=== PATIENT | female | born 1970 | race American Indian/Alaskan Native ===

== ENCOUNTER 2021-07-30 13:10 | Inpatient (IN) | payer SELFPAY ==
[2021-07-30] MEDS ORDERED: HEPARIN 1,000 UNIT/1 ML VIAL IV ONE (13:23)
[2021-07-30] MEDS ORDERED: SODIUM CHLORIDE 0.9% 1000 ML 1,000 ML IV ONE (13:23)
--- NOTE | 2021-07-30 13:25 | Emergency Department Report ---
ED General Adult HPI - General Stated complaint: CHEST PAIN Time Seen by Provider: 07/30/21 13:12 - History of Present Illness Initial comments: Patient came in with EMS as a code STEMI. She had called them due to generalized weakness. Patient did not report focal weakness. She states that she felt weak all day. She is diabetic and hypertensive. She states that she does not have any chest pain. She has had diarrhea previously. Patient states that she does feel slightly short of breath. This is not specifically exertional. She has no chest pain. She has no abdominal pain. She denies back pain. She just does not feel well. EMS had transported the patient as a code STEMI based on abnormal EKG. EKG was transmitted here and we did call code STEMI based on the prehospital EKG. Dr. Ko had been notified prior to patient arrival as have the [facility]. Severity scale (0 -10): 0 ED Review of Systems ROS: Stated complaint: CHEST PAIN Other details as noted in HPI Comment: All other systems reviewed and negative Constitutional: denies: fever Eyes: denies: vision change ENT: denies: throat pain Respiratory: denies: cough Cardiovascular: denies: chest pain Endocrine: denies: unexplained weight loss Gastrointestinal: as per HPI Genitourinary: denies: dysuria Musculoskeletal: denies: back pain Skin: denies: rash Neurological: as per HPI, weakness Hematological/Lymphatic: denies: easy bruising ED Past Medical Hx - Past Medical History Hx Hypertension: Yes Hx Diabetes: Yes - Family History Family history: diabetes, hypertension - Social History Smoking Status: Former Smoker ED Physical Exam - General Limitations: No Limitations, Other (Pulse ox noted and normal) General appearance: alert, in no apparent distress, other (Frail) - Head Head exam: Present: atraumatic, normocephalic - Eye Eye exam: Present: normal appearance, PERRL, EOMI - ENT ENT exam: Present: mucous membranes dry, normal external ear exam - Neck Neck exam: Present: normal inspection. Absent: tenderness, meningismus - Respiratory Respiratory exam: Present: normal lung sounds bilaterally. Absent: respiratory distress - Cardiovascular Cardiovascular Exam: Present: normal rhythm, tachycardia - GI/Abdominal GI/Abdominal exam: Present: soft. Absent: distended, tenderness - Extremities Exam Extremities exam: Absent: calf tenderness - Back Exam Back exam: Absent: CVA tenderness (R), CVA tenderness (L) - Neurological Exam Neurological exam: Present: alert, oriented X3, CN II-XII intact. Absent: motor sensory deficit - Psychiatric Psychiatric exam: Present: normal affect, normal mood - Skin Skin exam: Present: warm, dry ED Course Vital Signs 07/30/21 13:22 Pulse Rate 125 H Respiratory 16 Rate Blood Pressure 140/105 [Left] O2 Sat by Pulse 97 Oximetry - Reevaluation(s) Reevaluation #1: 07/30/21 13:25 EMS have been met upon arrival. Code STEMI was activated prior to EMS arrival based on field EKG. Case was discussed with Dr. Ko on-call for interventional cardiology who reviewed our EKG. Decision was made to proceed to the [facility]. ED Medical Decision Making - Lab Data Rhythm strip: Sinus tachycardia without ectopy. Monitor observe 10 seconds. - EKG Data -: EKG Interpreted by Me - EKG Data When compared to previous EKG there are: previous EKG unavailable 07/30/21 13:34 1313-EKG shows sinus tachycardia at 117. Patient does have left ventricular hypertrophy. QRS is normal at 101. QT corrected is normal at 4-54. Patient does have ST elevation of the greater than 5 mm and at least one lead. There is actually ST elevation in V1 through V3 with ST depression in 1 and aVL. There is a suggestion of ST elevation or J-point elevation in 3 and aVF. This is similar to what the EKG transmitted by EMS was. There is no old EKG for comparison. - Medical Decision Making Patient presented with generalized weakness. She is diabetic and hypertensive. She has an EKG that has ST elevation concerning for AMI. This has been provided to the network controller and discussed with the network controller. The plan is to take the patient emergently to the [facility]. It is conceivable that this does not represent a [place] and cardiology believes that this could represent Brugada syndrome. Electrolytes have been ordered and are currently pending. Patient has no abdominal tenderness on exam. She does not appear to be septic or toxic. Critical Care Time: No Critical care attestation.: If time is entered above; I have spent that time in minutes in the direct care of this critically ill patient, excluding procedure time. ED Disposition Clinical Impression: Generalized weakness, Abnormal EKG Disposition: ADMITTED INPATIENT Is pt being admited?: Yes Condition: Stable
[2021-07-30] MEDS ORDERED: MIDAZOLAM 2 MG/2 ML INJ ONE (13:39)
[2021-07-30] MEDS ORDERED: HEPARIN/NS 5000 UNIT/500ML 1,000 ML IR ONE (13:39)
[2021-07-30] MEDS ORDERED: LIDOCAINE PF 100 MG/5 ML (CARDIAC SYRINGE) IV ONE (13:39)
[2021-07-30] MEDS ORDERED: EPINEPHrine 1 MG/10 ML SYRINGE ONE (13:39)
[2021-07-30] MEDS ORDERED: ATROPINE 0.1% (1 MG/10 ML) CARDIAC SYRINGE ONE (13:39)
[2021-07-30 13:40] LABS: Hematocrit 27.1 % (30.3-42.9); Hemoglobin 9.1 gm/dl (10.1-14.3); Mean Corpuscular HGB Conc 34 % (30-34); Mean Corpuscular Volume 70 fl (79-97); Platelet Count 524 K/mm3 (140-440); Red Blood Count 3.85 M/mm3 (3.65-5.03); Red Cell Distribution Width 19.1 % (13.2-15.2)
[2021-07-30] MEDS ORDERED: LIDOCAINE (2%) 20 MG/1 ML VIAL 20 ML MDV INFILTRATI ONE (13:40)
[2021-07-30] MEDS ORDERED: fentaNYL 100 MCG/2 ML INJ ONE (13:40)
[2021-07-30] MEDS ORDERED: PHENYLEPHRINE/NS 1,000 MCG/10 ML SYRINGE (OR USE) IV ONE (13:40)
[2021-07-30] MEDS ORDERED: NITROGLYCERIN SYRINGE 3 ML ONE (13:40)
[2021-07-30 13:54] LABS: INR 0.97 (0.87-1.13); Partial Thromboplastin Time 24.9 Sec. (24.2-36.6)
[2021-07-30] MEDS: HEPARIN 10,000 UNITS/10 ML VIAL ONE ×2 (13:57→14:07)
[2021-07-30] MEDS: VERAPAMIL 5 MG/2 ML INJ ONE ×2 (13:57→14:07)
[2021-07-30 13:59] LABS: Creatine Kinase MB 3.7 ng/mL (0.0-4.0)
[2021-07-30 14:00] LABS: BUN/Creatinine Ratio 17; Blood Urea Nitrogen 27 mg/dL (7-17); Hemolysis Index 25
[2021-07-30 14:08] LABS: Calcium > 13.0 mg/dL (8.4-10.2)
[2021-07-30] MEDS ORDERED: MORPHINE 2 MG/1 ML INJ IV PRN (14:16)
[2021-07-30] MEDS ORDERED: ONDANSETRON 4 MG/2 ML INJ IV PRN (14:16)
[2021-07-30] MEDS ORDERED: METOCLOPRAMIDE 10 MG/2 ML INJ IV PRN (14:16)
[2021-07-30] MEDS ORDERED: ACETAMINOPHEN 325 MG TAB PO PRN (14:16)
[2021-07-30 14:23] LABS: Chol/HDL Ratio 3.89 %; HDL Cholesterol 49 mg/dL (40-59); LDL Cholesterol,Direct 98 mg/dL (50-130)
[2021-07-30] MEDS ORDERED: traMADol 50 MG TAB PO PRN (14:23)
[2021-07-30] MEDS ORDERED: SODIUM CHLORIDE 0.9% 1000 ML 1,000 ML IV SCH (14:30)
--- NOTE | 2021-07-30 14:30 | Consultation ---
History of Present Illness Consult date: 07/30/21 Requesting physician: TD REILLY Consult reason: other (Abnormal EKG) History of present illness: Patient is a 51-year-old with no prior cardiac history. She has a history of hypertension and diabetes mellitus. She presented to the emergency room via EMS when she complaining of significant fatigue and tiredness. Apparently has been having gradual onset of fatigue and tiredness. But this afternoon it became so intense that she called EMS S. EKG revealed markedly abnormal EKG with ST elevations and QT prolongations in anterior leads. However no reciprocal depression. In view of the multiple risk factors markedly abnormal EKG she was taken for an emergency left heart cath. Fortunately left heart cath was negative. Patient is being admitted to the general medicine team for further treatment of her extreme fatigue and tiredness. Patient does complain of diarrhea for the past few days. Lab work revealed elevated creatinine Past History Past Medical History: diabetes, hypertension Past Surgical History: No surgical history Social history: no significant social history Family history: no significant family history Medications and Allergies Allergies Allergy/AdvReac Type Severity Reaction Status Date / Time No Known Allergies Allergy Unverified 07/30/21 13:38 Active Meds: Active Medications Hydrocodone Bitart/Acetaminophen (Hydrocodone/Acetaminophen 5-325 Mg Tab) 1 each PO Q4H PRN PRN Reason: Pain, Moderate (4-6) Sodium Chloride (Nacl 0.9% 1000 Ml) 1,000 mls @ 150 mls/hr IV DIRECT JO-ANN Tramadol HCl (Tramadol 50 Mg Tab) 50 mg PO Q4H PRN PRN Reason: Pain, Mild (1-3) Review of Systems All systems: negative (As mentioned in the H&P) Physical Examination Vital Signs Pulse Resp BP Pulse Ox 125 H 16 140/105 97 07/30/21 13:12 07/30/21 13:12 07/30/21 13:12 07/30/21 13:12 General appearance: no acute distress HEENT: Positive: Normocephaly Neck: Positive: trachea midline Cardiac: Positive: Reg Rate and Rhythm Lungs: Positive: clear to auscultation Neuro: Positive: Grossly Intact Abdomen: Positive: Unremarkable Female genitourinary: deferred, normal Extremities: Present: normal Results 07/30/21 13:00 07/30/21 13:00 Cardiac Enzymes 07/30/21 Range/Units 13:00 CK-MB (CK-2) 3.7 (0.0-4.0) ng/mL Coagulation 07/30/21 Range/Units 13:00 PT 13.9 (12.2-14.9) Sec. INR 0.97 (0.87-1.13) APTT 24.9 (24.2-36.6) Sec. Lipids 07/30/21 Range/Units 13:00 Triglycerides 170 H (2-149) mg/dL Cholesterol 191 (50-199) mg/dL HDL Cholesterol 49 (40-59) mg/dL Cholesterol/HDL Ratio 3.89 % CBC 07/30/21 Range/Units 13:00 WBC 14.8 H (4.5-11.0) K/mm3 RBC 3.85 (3.65-5.03) M/mm3 Hgb 9.1 L (10.1-14.3) gm/dl Hct 27.1 L (30.3-42.9) % Plt Count 524 H (140-440) K/mm3 Comprehensive Metabolic Panel 07/30/21 Range/Units 13:00 Sodium 134 L (137-145) mmol/L Potassium 3.3 L (3.6-5.0) mmol/L Chloride 92.7 L (98-107) mmol/L Carbon Dioxide 29 (22-30) mmol/L BUN 27 H (7-17) mg/dL Creatinine 1.6 H (0.6-1.2) mg/dL Glucose 107 H (65-100) mg/dL Calcium > 13.0 H* (8.4-10.2) mg/dL EKG interpretations - Telemetry EKG Rhythm: Sinus Rhythm (Marked ST elevation in anterior leads with QT prolongation. No significant reciprocal depression noted.) Assessment and Plan Impression 1. Markedly abnormal EKG with tombstone ST elevations and QT prolongation. Fortunately left heart cath negative. Would likely need work-up for variance of Brugada syndrome 2. Extreme fatigue and weakness noncardiac 3. Renal failure likely acute 4. Hypokalemia 5. History of hypertension 6. History of diabetes mellitus 7. Diarrhea Plan 1. Routine post cardiac cath cardiac care 2. Aggressive IV hydration 3. Continue security monitor 4. 2D echocardiogram 5. Replace lites 6. Rest per primary team
[2021-07-30] MEDS: FAMOTIDINE 20 MG TAB PO SCH ×2 (16:44→21:16)
[2021-07-30] MEDS: HEPARIN 5,000 UNIT/1 ML VIAL SUB-Q SCH ×2 (16:44→21:16)
[2021-07-30 17:21] LABS: Creatine Kinase MB 3.3 ng/mL (0.0-4.0)
[2021-07-30] MEDS: oxyCODONE /ACETAMINOPHEN 5-325MG TAB PO PRN (18:48)
[2021-07-30 20:14] LABS: Creatine Kinase MB 4.1 ng/mL (0.0-4.0)
--- NOTE | 2021-07-30 20:24 | XRay Report ---
CHEST 1 VIEW INDICATION / CLINICAL INFORMATION: stemi. COMPARISON: None available. FINDINGS: SUPPORT DEVICES: None. HEART / MEDIASTINUM: No significant abnormality. LUNGS / PLEURA: No significant pulmonary or pleural abnormality. No pneumothorax. ADDITIONAL FINDINGS: No significant additional findings. IMPRESSION: 1. No acute findings. Signer Name: Edwardo Alcala MD Signed: 07/30/2021 8:20 PM Workstation Name: [id number]
[2021-07-31] MEDS: SODIUM CHLORIDE 0.9% 1000 ML 1,000 ML IV SCH ×2 (04:41→16:53)
--- NOTE | 2021-07-31 06:27 | History and Physical Report ---
History of Present Illness Date of examination: 07/31/21 Date of admission: 07/30/21 14:16 Chief complaint: Generalized weakness for 3 to 4 days History of present illness: Patient complains of generalized weakness for the last 2 to 3 days. No chest pain. EMS was called. EKG done by EMS was transmitted to the emergency room and code STEMI was called. It was a questionable STEMI. Because of a acute ST- T wave changes patient was taken to the [facility] for cardiac cath. Based on the prehospital EKG. She has a history of hypertension and diabetes mellitus. She presented to the emergency room via EMS when she complaining of significant fatigue and tiredness . Apparently has been having gradual onset of fatigue and tiredness. But this afternoon it became so intense that she called EMS S. EKG revealed markedly abnormal EKG with ST elevations and QT prolongations in anterior leads. However no reciprocal depression. In view of the multiple risk factors markedly abnormal EKG she was taken for an emergency left heart cath. Fortunately left heart cath was negative. Patient is being admitted to the general medicine team for further treatment of her extreme fatigue and tiredness. Patient does complain of diarrhea for the past few days. Lab work revealed elevated creatinine [facility] was informed and patient was taken to [facility] and had cardiac cath. Cardiac cath was normal and no stents were placed. Patient continued to feel weak and occasional chest pain. Hence admission for next 23 hours for IV fluids and observation. - Past Medical History --Hypertension: Yes --Diabetes: Yes - past surgical history -- N/A - Family History --Family history: diabetes, hypertension - Social History Smoking Status: Former Smoker Review of Systems ROS: Stated complaint: CHEST PAIN Other details as noted in HPI Comment: All other systems reviewed and negative Constitutional: denies: fever Eyes: denies: vision change ENT: denies: throat pain Respiratory: denies: cough Cardiovascular: denies: chest pain Endocrine: denies: unexplained weight loss Gastrointestinal: as per HPI Genitourinary: denies: dysuria Musculoskeletal: denies: back pain Skin: denies: rash Neurological: as per HPI, weakness Hematological/Lymphatic: denies: easy bruising Past History Past Medical History: diabetes, hypertension Past Surgical History: No surgical history Social history: no significant social history Family history: no significant family history Medications and Allergies Allergies Allergy/AdvReac Type Severity Reaction Status Date / Time No Known Allergies Allergy Unverified 07/30/21 13:38 Home Medications Medication Instructions Recorded Confirmed Last Taken Type Ferrous Sulfate [Iron 325 MG] 325 mg PO DAILY 07/30/21 07/30/21 1 Day Ago History ~07/29/21 Hydralazine HCl 50 mg PO DAILY 07/30/21 07/30/21 1 Day Ago History ~07/29/21 Insulin Glargine,Hum.rec.anlog 12 unit SQ QHS 07/30/21 07/30/21 1 Day Ago History [Lantus Solostar] ~07/29/21 Insulin Lispro [Admelog] See Protocol SQ QACHS 07/30/21 07/30/21 1 Day Ago History ~07/29/21 Metoprolol Tartrate [Lopressor] 100 mg PO BID 07/30/21 07/30/21 1 Day Ago History ~07/29/21 amLODIPine 10 mg PO DAILY 07/30/21 07/30/21 1 Day Ago History ~07/29/21 lisinopriL [Zestril TAB] 40 mg PO QDAY 07/30/21 07/30/21 1 Day Ago History ~07/29/21 traMADoL [Ultram 50 MG tab] 50 mg PO Q6HR PRN 07/30/21 07/30/21 1 Day Ago History ~07/29/21 Active Meds: Active Medications Acetaminophen (Acetaminophen 325 Mg Tab) 650 mg PO Q4H PRN PRN Reason: Pain MILD(1-3)/Fever >100.5/BERNABE Hydrocodone Bitart/Acetaminophen (Hydrocodone/Acetaminophen 5-325 Mg Tab) 1 each PO Q4H PRN PRN Reason: Pain, Moderate (4-6) Famotidine (Famotidine 20 Mg Tab) 20 mg PO BID JO-ANN Last Admin: 07/30/21 21:16 Dose: 20 mg Heparin Sodium (Porcine) (Heparin 5,000 Unit/1 Ml Vial) 5,000 unit SUB-Q Q12HR JO-ANN Last Admin: 07/30/21 21:16 Dose: 5,000 unit Sodium Chloride (Nacl 0.9% 1000 Ml) 1,000 mls @ 100 mls/hr IV DIRECT JO-ANN Last Admin: 07/31/21 04:41 Dose: 100 mls/hr Metoclopramide HCl (Metoclopramide 10 Mg/2 Ml Inj) 10 mg IV Q6H PRN PRN Reason: Nausea And Vomiting Morphine Sulfate (Morphine 2 Mg/1 Ml Inj) 2 mg IV Q4H PRN PRN Reason: Pain, Moderate (4-6) Ondansetron HCl (Ondansetron 4 Mg/2 Ml Inj) 4 mg IV Q8H PRN PRN Reason: Nausea And Vomiting Oxycodone/Acetaminophen (Oxycodone /Acetaminophen 5-325mg Tab) 1 tab PO Q6H PRN PRN Reason: Pain, Moderate (4-6) Last Admin: 07/30/21 18:48 Dose: 1 tab Sodium Chloride (Sodium Chloride 0.9% 10 Ml Flush Syringe) 10 ml IV BID JO-ANN Last Admin: 07/30/21 21:17 Dose: 10 ml Sodium Chloride (Sodium Chloride 0.9% 10 Ml Flush Syringe) 10 ml IV PRN PRN PRN Reason: LINE FLUSH Tramadol HCl (Tramadol 50 Mg Tab) 50 mg PO Q4H PRN PRN Reason: Pain, Mild (1-3) Exam - Constitutional Vitals: Temp Pulse Resp BP Pulse Ox 97.7 F 68 19 166/97 100 07/31/21 03:31 07/31/21 03:31 07/31/21 03:31 07/31/21 03:31 07/31/21 03:31 HEART Score - HEART Score Troponin: Troponin T 0.096 ng/mL (0.00-0.029) H 07/30/21 18:56 Results - Labs CBC & Chem 7: 07/31/21 05:32 07/31/21 05:32 Labs: Laboratory Last Values WBC 14.8 K/mm3 (4.5-11.0) H 07/30/21 13:00 RBC 3.85 M/mm3 (3.65-5.03) 07/30/21 13:00 Hgb 9.1 gm/dl (10.1-14.3) L 07/30/21 13:00 Hct 27.1 % (30.3-42.9) L 07/30/21 13:00 MCV 70 fl (79-97) L 07/30/21 13:00 MCH 24 pg (28-32) L 07/30/21 13:00 MCHC 34 % (30-34) 07/30/21 13:00 RDW 19.1 % (13.2-15.2) H 07/30/21 13:00 Plt Count 524 K/mm3 (140-440) H 07/30/21 13:00 PT 13.9 Sec. (12.2-14.9) 07/30/21 13:00 INR 0.97 (0.87-1.13) 07/30/21 13:00 APTT 24.9 Sec. (24.2-36.6) 07/30/21 13:00 Sodium 134 mmol/L (137-145) L 07/30/21 13:00 Potassium 3.3 mmol/L (3.6-5.0) L 07/30/21 13:00 Chloride 92.7 mmol/L (98-107) L 07/30/21 13:00 Carbon Dioxide 29 mmol/L (22-30) 07/30/21 13:00 Anion Gap 16 mmol/L 07/30/21 13:00 BUN 27 mg/dL (7-17) H 07/30/21 13:00 Creatinine 1.6 mg/dL (0.6-1.2) H 07/30/21 13:00 Estimated GFR 34 ml/min 07/30/21 13:00 BUN/Creatinine Ratio 17 % 07/30/21 13:00 Glucose 107 mg/dL (65-100) H 07/30/21 13:00 POC Glucose 97 mg/dL (70-105) 07/30/21 20:39 Calcium > 13.0 mg/dL (8.4-10.2) H* 07/30/21 13:00 Magnesium 2.10 mg/dL (1.7-2.3) 07/30/21 13:00 Total Creatine Kinase 120 units/L (30-135) 07/30/21 18:56 CK-MB (CK-2) 4.1 ng/mL (0.0-4.0) H 07/30/21 18:56 CK-MB (CK-2) Rel Index 3.4 (0-4) 07/30/21 18:56 Troponin T 0.096 ng/mL (0.00-0.029) H 07/30/21 18:56 Triglycerides 170 mg/dL (2-149) H 07/30/21 13:00 Cholesterol 191 mg/dL (50-199) 07/30/21 13:00 LDL Cholesterol Direct 98 mg/dL (50-130) 07/30/21 13:00 HDL Cholesterol 49 mg/dL (40-59) 07/30/21 13:00 Cholesterol/HDL Ratio 3.89 % 07/30/21 13:00 Blood Type A POSITIVE 07/30/21 18:00 Antibody Screen Negative 07/30/21 18:00 Short CBC 07/30/21 07/31/21 Range/Units 13:00 05:32 WBC 14.8 H 11.4 H (4.5-11.0) K/mm3 Hgb 9.1 L 7.9 L (10.1-14.3) gm/dl Hct 27.1 L 25.3 L (30.3-42.9) % Plt Count 524 H 421 (140-440) K/mm3 BMP 07/30/21 07/31/21 13:00 05:32 Sodium 134 L 137 Potassium 3.3 L 2.8 L* Chloride 92.7 L 98.7 Carbon Dioxide 29 27 BUN 27 H 26 H Creatinine 1.6 H 1.4 H Glucose 107 H 96 Calcium > 13.0 H* > 13.0 H* Cardiac Enzymes 07/30/21 07/30/21 07/30/21 Range/Units 13:00 16:49 18:56 Total Creatine Kinase 159 H 108 120 (30-135) units/L CK-MB (CK-2) 3.7 3.3 4.1 H (0.0-4.0) ng/mL Troponin T 0.108 H* 0.084 H D 0.096 H (0.00-0.029) ng/mL Liver Function 07/31/21 Range/Units 05:32 Total Bilirubin 0.20 (0.1-1.2) mg/dL AST 15 (5-40) units/L ALT 10 (7-56) units/L Alkaline Phosphatase 110 (35-129) units/L Albumin 2.6 L (3.9-5) g/dL Zacarias/IV: Voiding Method Toilet Assessment and Plan Advance Directives: Yes (Full code) VTE prophylaxis?: Chemical Plan of care discussed with patient/family: Yes - Patient Problems (1) STEMI (ST elevation myocardial infarction) Current Visit: Yes Status: Acute Plan to address problem: Patient presented with generalized weakness. She is diabetic and hypertensive. She has an EKG that has ST elevation concerning for AMI. This has been provided to the senior advisory and discussed with the senior advisory. The plan is to take the patient emergently to the [facility]. It is conceivable that this does not represent a [place] and cardiology believes that this could represent Brugada syndrome. Electrolytes have been ordered and are currently pending. Patient has no abdominal tenderness on exam. She does not appear to be septic or toxic. Coronary arteries are normal IV fluids for now for generalized weakness Discharge tomorrow if patient feels better Also if hypokalemia is corrected Troponins are elevated Cardiology consult in place Possible vasospasm (2) POLLO (acute kidney injury) Current Visit: Yes Status: Acute Plan to address problem: Vasomotor nephropathy IV fluids for now Check creatinine (3) Dehydration Current Visit: Yes Status: Acute Plan to address problem: IV fluids for now (4) Hypertension Current Visit: Yes Status: Chronic Qualifiers: Hypertension type: primary hypertension Qualified Code(s): I10 - Essential (primary) hypertension Plan to address problem: Continue antihypertensives and adjust medications (5) T2DM (type 2 diabetes mellitus) Current Visit: Yes Status: Chronic Qualifiers: Diabetes mellitus mcfp insulin use: unspecified mcfp insulin use status Plan to address problem: Coverage for now and hemoglobin A1c to be checked (6) DVT prophylaxis Current Visit: Yes Status: Acute Plan to address problem: On anticoagulation GI prophylaxis (7) Advance care planning Current Visit: Yes Status: Acute Plan to address problem: Disease education conducted, care plan discussed, diagnosis discussed, prognosis discussed. Patient is full code. Patient acknowledges understanding and agreement with care plan. +30 minutes.
[2021-07-31 06:28] LABS: Basophils % (Auto) 0.2 % (0.0-1.8); Eosinophils # (Auto) 0.1 K/mm3 (0.0-0.4); Eosinophils % (Auto) 0.6 % (0.0-4.3); Hematocrit 25.3 % (30.3-42.9); Hemoglobin 7.9 gm/dl (10.1-14.3); Lymphocytes % (Auto) 8.8 % (13.4-35.0); Mean Corpuscular HGB Conc 31 % (30-34); Mean Corpuscular Volume 71 fl (79-97); Monocytes # (Auto) 0.5 K/mm3 (0.0-0.8); Monocytes % (Auto) 4.2 % (0.0-7.3); Platelet Count 421 K/mm3 (140-440); Red Blood Count 3.57 M/mm3 (3.65-5.03); Red Cell Distribution Width 18.8 % (13.2-15.2)
[2021-07-31 06:51] LABS: Alanine Aminotransferase 10 units/L (7-56); Albumin 2.6 g/dL (3.9-5); BUN/Creatinine Ratio 19; Blood Urea Nitrogen 26 mg/dL (7-17); Hemolysis Index 8
[2021-07-31 07:00] LABS: Calcium > 13.0 mg/dL (8.4-10.2)
[2021-07-31] MEDS ORDERED: POTASSIUM CHLORIDE ER 20 MEQ TAB PO ONE (07:20)
[2021-07-31] MEDS: HEPARIN 5,000 UNIT/1 ML VIAL SUB-Q SCH ×2 (09:48→21:49)
[2021-07-31] MEDS: FAMOTIDINE 20 MG TAB PO SCH ×2 (09:48→21:49)
[2021-07-31] MEDS: POTASSIUM CHLORIDE 10 MEQ 10 MEQ/100 ML BAG IV SCH ×3 (09:49→13:30)
--- NOTE | 2021-07-31 10:31 | Progress Note ---
Assessment and Plan Assessment and plan: --STEMI (ST elevation myocardial infarction) Current Visit: Yes Status: Acute Patient presented with generalized weakness. She is diabetic and hypertensive. She has an EKG that has ST elevation concerning for AMI. Cardiology recommendations reviewed s/p emergently to the Seismograph Observer. Findings do not represent a [facility] and cardiology believes that this could represent Brugada syndrome. Coronary arteries are normal IV fluids for now for generalized weakness Discharge tomorrow if patient feels better Follow electrolytes --Severe hypokalemia; Replenished with KCl 40 mEq p.o. KCl IV 40 mEq Monitor potassium and magnesium level electrolytes -POLLO (acute kidney injury) Current Visit: Yes Status: Acute vasomotor nephropathy Creatinine trending down 1.6 -1.4 Continue IV hydration, monitor renal function Avoid nephrotoxin. Renal dosing of medications --Dehydration ; Acute kidney injury , hypercalcemia Continue IV hydration monitor electrolytes --Hypertension Current Visit: Yes Status: Chronic Continue antihypertensives and adjust medications --T2DM (type 2 diabetes mellitus) Current Visit: Yes Status: Chronic Coverage for now and hemoglobin A1c to be checked --DVT prophylaxis Current Visit: Yes Status: Acute On anticoagulation GI prophylaxis --Advance care planning Current Visit: Yes Status: Acute Disease education conducted, care plan discussed, diagnosis discussed, prognosis discussed. Patient is full code. Patient acknowledges understanding and agreement with care plan. +30 minutes. We will closely monitor the patient and adjust the management as needed History Interval history: Seen and examined the patient at the bedside Patient's chart and medications reviewed Patient is anxious, wants something to calm her nerves Patient had negative heart cath yesterday Cardiology evaluation recommendations noted Blood pressures poorly controlled Patient denies chest pain or shortness of breath Hospitalist Physical - Constitutional Vitals: Temp Pulse Resp BP Pulse Ox 98.5 F 81 18 153/94 100 07/31/21 07:34 07/31/21 07:34 07/31/21 07:34 07/31/21 07:34 07/31/21 07:34 General appearance: Present: no acute distress, cachectic, other - EENT Eyes: Present: PERRL, EOM intact - Neck Neck: Present: supple, normal ROM - Respiratory Respiratory effort: normal Respiratory: bilateral: diminished, negative: rales, rhonchi, wheezing - Cardiovascular Rhythm: regular Heart Sounds: Present: S1 & S2 - Extremities Extremities: no ischemia, No edema - Abdominal General gastrointestinal: soft, non-tender, non-distended, normal bowel sounds - Integumentary Integumentary: Present: clear, warm - Psychiatric Psychiatric: appropriate mood/affect, cooperative - Neurologic Neurologic: CNII-XII intact, moves all extremities HEART Score - HEART Score Troponin: Troponin T 0.096 ng/mL (0.00-0.029) H 07/30/21 18:56 Results - Labs CBC & Chem 7: 07/31/21 05:32 07/31/21 05:32 Labs: Laboratory Last Values WBC 11.4 K/mm3 (4.5-11.0) H 07/31/21 05:32 RBC 3.57 M/mm3 (3.65-5.03) L 07/31/21 05:32 Hgb 7.9 gm/dl (10.1-14.3) L 07/31/21 05:32 Hct 25.3 % (30.3-42.9) L 07/31/21 05:32 MCV 71 fl (79-97) L 07/31/21 05:32 MCH 22 pg (28-32) L 07/31/21 05:32 MCHC 31 % (30-34) 07/31/21 05:32 RDW 18.8 % (13.2-15.2) H 07/31/21 05:32 Plt Count 421 K/mm3 (140-440) 07/31/21 05:32 Lymph % (Auto) 8.8 % (13.4-35.0) L 07/31/21 05:32 [place] % (Auto) 4.2 % (0.0-7.3) 07/31/21 05:32 Eos % (Auto) 0.6 % (0.0-4.3) 07/31/21 05:32 Baso % (Auto) 0.2 % (0.0-1.8) 07/31/21 05:32 Lymph # (Auto) 1.0 K/mm3 (1.2-5.4) L 07/31/21 05:32 [place] # (Auto) 0.5 K/mm3 (0.0-0.8) 07/31/21 05:32 Eos # (Auto) 0.1 K/mm3 (0.0-0.4) 07/31/21 05:32 Baso # (Auto) 0.0 K/mm3 (0.0-0.1) 07/31/21 05:32 Seg Neutrophils % 86.2 % (40.0-70.0) H 07/31/21 05:32 Seg Neutrophils # 9.8 K/mm3 (1.8-7.7) H 07/31/21 05:32 PT 13.9 Sec. (12.2-14.9) 07/30/21 13:00 INR 0.97 (0.87-1.13) 07/30/21 13:00 APTT 24.9 Sec. (24.2-36.6) 07/30/21 13:00 Sodium 137 mmol/L (137-145) 07/31/21 05:32 Potassium 2.8 mmol/L (3.6-5.0) L* 07/31/21 05:32 Chloride 98.7 mmol/L (98-107) 07/31/21 05:32 Carbon Dioxide 27 mmol/L (22-30) 07/31/21 05:32 Anion Gap 14 mmol/L 07/31/21 05:32 BUN 26 mg/dL (7-17) H 07/31/21 05:32 Creatinine 1.4 mg/dL (0.6-1.2) H 07/31/21 05:32 Estimated GFR 48 ml/min 07/31/21 05:32 BUN/Creatinine Ratio 19 % 07/31/21 05:32 Glucose 96 mg/dL (65-100) 07/31/21 05:32 POC Glucose 92 mg/dL (70-105) 07/31/21 07:32 Calcium > 13.0 mg/dL (8.4-10.2) H* 07/31/21 05:32 Magnesium 2.10 mg/dL (1.7-2.3) 07/30/21 13:00 Total Bilirubin 0.20 mg/dL (0.1-1.2) 07/31/21 05:32 AST 15 units/L (5-40) 07/31/21 05:32 ALT 10 units/L (7-56) 07/31/21 05:32 Alkaline Phosphatase 110 units/L (35-129) 07/31/21 05:32 Total Creatine Kinase 120 units/L (30-135) 07/30/21 18:56 CK-MB (CK-2) 4.1 ng/mL (0.0-4.0) H 07/30/21 18:56 CK-MB (CK-2) Rel Index 3.4 (0-4) 07/30/21 18:56 Troponin T 0.096 ng/mL (0.00-0.029) H 07/30/21 18:56 Total Protein 7.0 g/dL (6.3-8.2) 07/31/21 05:32 Albumin 2.6 g/dL (3.9-5) L 07/31/21 05:32 Albumin/Globulin Ratio 0.6 % 07/31/21 05:32 Triglycerides 170 mg/dL (2-149) H 07/30/21 13:00 Cholesterol 191 mg/dL (50-199) 07/30/21 13:00 LDL Cholesterol Direct 98 mg/dL (50-130) 07/30/21 13:00 HDL Cholesterol 49 mg/dL (40-59) 07/30/21 13:00 Cholesterol/HDL Ratio 3.89 % 07/30/21 13:00 Blood Type A POSITIVE 07/30/21 18:00 Antibody Screen Negative 07/30/21 18:00 Zacarias/IV: Voiding Method Toilet Active Medications - Current Medications Current Medications: Generic Name Dose Route Start Last Admin Trade Name Freq PRN Reason Stop Dose Admin Acetaminophen 650 mg 07/30/21 14:16 Acetaminophen 325 Mg Tab PO Q4H PRN Pain MILD(1-3)/Fever >100.5/BERNABE Hydrocodone Bitart/Acetaminophen 1 each 07/30/21 14:23 Hydrocodone/Acetaminophen 5-325 Mg Tab PO Q4H PRN Pain, Moderate (4-6) Famotidine 20 mg 07/30/21 15:00 07/31/21 09:48 Famotidine 20 Mg Tab PO 20 mg BID JO-ANN Administration Heparin Sodium (Porcine) 5,000 unit 07/30/21 14:30 07/31/21 09:48 Heparin 5,000 Unit/1 Ml Vial SUB-Q 5,000 unit Q12HR JO-ANN Administration Sodium Chloride 1,000 mls @ 100 mls/hr 07/30/21 14:30 07/31/21 04:41 Nacl 0.9% 1000 Ml IV 100 mls/hr DIRECT JO-ANN Administration Potassium Chloride 10 meq in 100 mls @ 100 mls/hr 07/31/21 08:00 07/31/21 09:49 Kcl 10meq/100ml IV 07/31/21 11:59 100 mls/hr Q1H JO-ANN Administration Metoclopramide HCl 10 mg 07/30/21 14:16 Metoclopramide 10 Mg/2 Ml Inj IV Q6H PRN Nausea And Vomiting Morphine Sulfate 2 mg 07/30/21 14:16 Morphine 2 Mg/1 Ml Inj IV Q4H PRN Pain, Moderate (4-6) Ondansetron HCl 4 mg 07/30/21 14:16 Ondansetron 4 Mg/2 Ml Inj IV Q8H PRN Nausea And Vomiting Oxycodone/Acetaminophen 1 tab 07/30/21 14:16 07/30/21 18:48 Oxycodone /Acetaminophen 5-325mg Tab PO 1 tab Q6H PRN Administration Pain, Moderate (4-6) Sodium Chloride 10 ml 07/30/21 15:00 07/30/21 21:17 Sodium Chloride 0.9% 10 Ml Flush Syringe IV 10 ml BID JO-ANN Administration Sodium Chloride 10 ml 07/30/21 14:16 Sodium Chloride 0.9% 10 Ml Flush Syringe IV PRN PRN LINE FLUSH Tramadol HCl 50 mg 07/30/21 14:23 Tramadol 50 Mg Tab PO Q4H PRN Pain, Mild (1-3)
[2021-07-31] MEDS ORDERED: ALPRAZolam 0.25 MG TAB PO PRN (12:04)
--- NOTE | 2021-07-31 12:06 | Progress Note ---
Assessment and Plan - Patient Problems (1) POLLO (acute kidney injury) Current Visit: Yes Status: Acute (2) Abnormal EKG Current Visit: Yes Status: Acute Subjective Date of service: 07/31/21 Interval history: NO CV C/O....SORE FROM DIARRHEA Objective Vital Signs Temp Pulse Resp BP BP Pulse Ox 07/31/21 07:34 98.5 F 81 18 153/94 100 07/31/21 03:31 97.7 F 68 19 166/97 100 07/30/21 23:02 97.6 F 68 19 164/94 100 07/30/21 22:00 98 07/30/21 20:00 78 07/30/21 19:25 97.6 F 72 14 140/93 100 07/30/21 16:57 98.8 F 75 18 140/92 93 07/30/21 16:32 68 07/30/21 16:27 68 98 07/30/21 15:45 13 140/92 99 07/30/21 13:30 78 13 140/92 99 07/30/21 13:22 125 H 16 140/105 97 07/30/21 13:12 125 H 16 140/105 97 07/30/21 13:11 97.1 F L 78 13 140/92 99 - Physical Examination General: No Apparent Distress HEENT: Positive: Normocephaly Neck: Positive: trachea midline Cardiac: Positive: Reg Rate and Rhythm Lungs: Positive: clear to auscultation Neuro: Positive: Grossly Intact Abdomen: Positive: Unremarkable Extremities: Present: normal - Labs and Meds Cardiac Enzymes 07/30/21 07/30/21 07/30/21 Range/Units 13:00 16:49 18:56 AST (5-40) units/L CK-MB (CK-2) 3.7 3.3 4.1 H (0.0-4.0) ng/mL 07/31/21 Range/Units 05:32 AST 15 (5-40) units/L CK-MB (CK-2) (0.0-4.0) ng/mL Coagulation 07/30/21 Range/Units 13:00 PT 13.9 (12.2-14.9) Sec. INR 0.97 (0.87-1.13) APTT 24.9 (24.2-36.6) Sec. Lipids 07/30/21 Range/Units 13:00 Triglycerides 170 H (2-149) mg/dL Cholesterol 191 (50-199) mg/dL HDL Cholesterol 49 (40-59) mg/dL Cholesterol/HDL Ratio 3.89 % CBC 07/30/21 07/31/21 Range/Units 13:00 05:32 WBC 14.8 H 11.4 H (4.5-11.0) K/mm3 RBC 3.85 3.57 L (3.65-5.03) M/mm3 Hgb 9.1 L 7.9 L (10.1-14.3) gm/dl Hct 27.1 L 25.3 L (30.3-42.9) % Plt Count 524 H 421 (140-440) K/mm3 Lymph # (Auto) 1.0 L (1.2-5.4) K/mm3 [place] # (Auto) 0.5 (0.0-0.8) K/mm3 Eos # (Auto) 0.1 (0.0-0.4) K/mm3 Baso # (Auto) 0.0 (0.0-0.1) K/mm3 Comprehensive Metabolic Panel 07/30/21 07/31/21 Range/Units 13:00 05:32 Sodium 134 L 137 (137-145) mmol/L Potassium 3.3 L 2.8 L* (3.6-5.0) mmol/L Chloride 92.7 L 98.7 (98-107) mmol/L Carbon Dioxide 29 27 (22-30) mmol/L BUN 27 H 26 H (7-17) mg/dL Creatinine 1.6 H 1.4 H (0.6-1.2) mg/dL Glucose 107 H 96 (65-100) mg/dL Calcium > 13.0 H* > 13.0 H* (8.4-10.2) mg/dL AST 15 (5-40) units/L ALT 10 (7-56) units/L Alkaline Phosphatase 110 (35-129) units/L Total Protein 7.0 (6.3-8.2) g/dL Albumin 2.6 L (3.9-5) g/dL
[2021-07-31] MEDS: oxyCODONE /ACETAMINOPHEN 5-325MG TAB PO PRN (12:13)
--- NOTE | 2021-07-31 14:55 | Cardiac Catherization Report ---
DATE OF PROCEDURE: 07/30/2021 CORONARY ANGIOGRAM REPORT PROCEDURES PERFORMED: 1. Selective left and right coronary angiogram. 2. Hemodynamic measurements across the aortic valve. SORTING AND FOLDING SUPERVISOR: Jeancarlos Ko MD INDICATIONS: 1. Significantly abnormal EKG with questionable anterior ST elevation myocardial infarction. 2. Sedation start time 1402, sedation end time 1415, total sedation time 13 minutes. 3. Moderate sedation was given under my guidance. The patient received Versed and fentanyl. PROCEDURE IN DETAIL: After obtaining written consent, the patient was draped using sterile technique. A 2% lidocaine was injected into the right wrist. A 5-Serbian vascular sheath was inserted into the right radial artery. A 5-Serbian JL3.5 catheter was used to selectively engage the left coronary artery. A 5-Serbian JR4 catheter was used to selectively engage the right coronary artery. A 5-Serbian JR4 catheter was used to perform a left ventriculogram. No complications occurred during the procedure. The left ventriculogram was not done. Hemostasis was achieved at the end of the procedure using manual pressure. SPECIMEN REMOVED: None. ESTIMATED BLOOD LOSS: Minimal. FINDINGS: HEMODYNAMICS: 1. AO 132/90, LV 132/8, LVEDP is 8. 2. Left ventriculogram was not done due to the patient's elevated creatinine. ANGIOGRAM DETAILS: 1. Left main angiographically normal. 2. LAD is angiographically normal. 3. Circumflex angiographically normal. 4. RCA is large, dominant and angiographically normal. IMPRESSION: 1. Angiographically normal coronary arteries. 2. Normal LVEDP. PLAN: 1. Aggressive risk factor modification. 2. Evaluate for alternative causes for the patient's symptoms. 3. Aggressive IV hydration. 4. Routine post-cardiac catheterization care. TID: [id number] RECEIPT: [id number] SHARITA/BRIAN/MARIELLE
[2021-07-31] MEDS ORDERED: DEXTROSE 10% *Hypoglycemia IV PRN (17:02)
[2021-07-31] MEDS ORDERED: METOPROLOL TARTRATE 50 MG TAB PO ONE (17:07)
[2021-07-31] MEDS: D5W/0.9% NACL 1,000 ML IV SCH (17:21)
[2021-07-31] MEDS: hydrALAZINE 25 MG TAB PO SCH (17:45)
[2021-07-31] MEDS: METOPROLOL TARTRATE 100 MG TAB PO SCH (21:48)
[2021-08-01] MEDS: hydrALAZINE 25 MG TAB PO SCH ×4 (00:18→21:32)
[2021-08-01 05:59] LABS: Basophils % (Auto) 0.2 % (0.0-1.8); Eosinophils % (Auto) 0.3 % (0.0-4.3); Hematocrit 24.3 % (30.3-42.9); Hemoglobin 7.6 gm/dl (10.1-14.3); Lymphocytes # (Auto) 0.9 K/mm3 (1.2-5.4); Lymphocytes % (Auto) 6.5 % (13.4-35.0); Mean Corpuscular HGB Conc 32 % (30-34); Mean Corpuscular Volume 70 fl (79-97); Monocytes # (Auto) 0.5 K/mm3 (0.0-0.8); Monocytes % (Auto) 3.6 % (0.0-7.3); Platelet Count 418 K/mm3 (140-440); Red Blood Count 3.44 M/mm3 (3.65-5.03); Red Cell Distribution Width 18.9 % (13.2-15.2)
[2021-08-01 06:15] LABS: BUN/Creatinine Ratio 15; Blood Urea Nitrogen 24 mg/dL (7-17); Hemolysis Index 5
[2021-08-01 06:38] LABS: Calcium > 13.0 mg/dL (8.4-10.2)
--- NOTE | 2021-08-01 09:49 | Progress Note ---
Assessment and Plan Assessment and plan: --STEMI (ST elevation myocardial infarction) Current Visit: Yes Status: Acute Patient presented with generalized weakness. She is diabetic and hypertensive. She has an EKG that has ST elevation concerning for AMI. Cardiology recommendations reviewed s/p emergently to the Rehabilitation Engineer. Findings do not represent a [facility] and cardiology believes that this could represent Brugada syndrome. Coronary arteries are normal IV fluids for now for generalized weakness Discharge tomorrow if patient feels better Follow electrolytes --Severe hypokalemia; Replenished with KCl 40 mEq p.o. KCl IV 40 mEq Monitor potassium and magnesium level electrolytes --Hypercalcemia; Closely monitor electrolytes Nephrology consultation -POLLO (acute kidney injury) Current Visit: Yes Status: Acute vasomotor nephropathy Creatinine trending down 1.6 -1.4 Continue IV hydration, monitor renal function Avoid nephrotoxin. Renal dosing of medications --Dehydration ; Acute kidney injury , hypercalcemia Continue IV hydration monitor electrolytes --Hypertension Current Visit: Yes Status: Chronic Continue antihypertensives and adjust medications --T2DM (type 2 diabetes mellitus) Current Visit: Yes Status: Chronic Coverage for now and hemoglobin A1c to be checked --DVT prophylaxis Current Visit: Yes Status: Acute On anticoagulation GI prophylaxis --Advance care planning Current Visit: Yes Status: Acute Disease education conducted, care plan discussed, diagnosis discussed, prognosis discussed. Patient is full code. Patient acknowledges understanding and agreement with care plan. +30 minutes. We will closely monitor the patient and adjust the management as needed History Interval history: I seen and examined the patient at the bedside Patient's chart and medications reviewed No new events reported by the nursing Hospitalist Physical - Constitutional Vitals: Temp Pulse Resp BP Pulse Ox 98.5 F 101 H 16 131/89 99 08/01/21 09:22 08/01/21 09:22 08/01/21 09:22 08/01/21 09:22 08/01/21 09:22 General appearance: Present: no acute distress, cachectic, other - EENT Eyes: Present: PERRL, EOM intact - Neck Neck: Present: supple, normal ROM - Respiratory Respiratory effort: normal Respiratory: bilateral: diminished, negative: rales, rhonchi, wheezing - Cardiovascular Rhythm: regular Heart Sounds: Present: S1 & S2 - Extremities Extremities: no ischemia, No edema - Abdominal General gastrointestinal: soft, non-tender, non-distended, normal bowel sounds - Integumentary Integumentary: Present: clear, warm - Psychiatric Psychiatric: appropriate mood/affect, cooperative - Neurologic Neurologic: CNII-XII intact, moves all extremities HEART Score - HEART Score Troponin: Troponin T 0.096 ng/mL (0.00-0.029) H 07/30/21 18:56 Results - Labs CBC & Chem 7: 08/01/21 05:16 08/01/21 05:16 Labs: Laboratory Last Values WBC 13.4 K/mm3 (4.5-11.0) H 08/01/21 05:16 RBC 3.44 M/mm3 (3.65-5.03) L 08/01/21 05:16 Hgb 7.6 gm/dl (10.1-14.3) L 08/01/21 05:16 Hct 24.3 % (30.3-42.9) L 08/01/21 05:16 MCV 70 fl (79-97) L 08/01/21 05:16 MCH 22 pg (28-32) L 08/01/21 05:16 MCHC 32 % (30-34) 08/01/21 05:16 RDW 18.9 % (13.2-15.2) H 08/01/21 05:16 Plt Count 418 K/mm3 (140-440) 08/01/21 05:16 Lymph % (Auto) 6.5 % (13.4-35.0) L 08/01/21 05:16 [place] % (Auto) 3.6 % (0.0-7.3) 08/01/21 05:16 Eos % (Auto) 0.3 % (0.0-4.3) 08/01/21 05:16 Baso % (Auto) 0.2 % (0.0-1.8) 08/01/21 05:16 Lymph # (Auto) 0.9 K/mm3 (1.2-5.4) L 08/01/21 05:16 [place] # (Auto) 0.5 K/mm3 (0.0-0.8) 08/01/21 05:16 Eos # (Auto) 0.0 K/mm3 (0.0-0.4) 08/01/21 05:16 Baso # (Auto) 0.0 K/mm3 (0.0-0.1) 08/01/21 05:16 Seg Neutrophils % 89.4 % (40.0-70.0) H 08/01/21 05:16 Seg Neutrophils # 12.0 K/mm3 (1.8-7.7) H 08/01/21 05:16 PT 13.9 Sec. (12.2-14.9) 07/30/21 13:00 INR 0.97 (0.87-1.13) 07/30/21 13:00 APTT 24.9 Sec. (24.2-36.6) 07/30/21 13:00 Sodium 140 mmol/L (137-145) 08/01/21 05:16 Potassium 3.7 mmol/L (3.6-5.0) 08/01/21 05:16 Chloride 105.5 mmol/L (98-107) 08/01/21 05:16 Carbon Dioxide 25 mmol/L (22-30) 08/01/21 05:16 Anion Gap 13 mmol/L 08/01/21 05:16 BUN 24 mg/dL (7-17) H 08/01/21 05:16 Creatinine 1.6 mg/dL (0.6-1.2) H 08/01/21 05:16 Estimated GFR 41 ml/min 08/01/21 05:16 BUN/Creatinine Ratio 15 % 08/01/21 05:16 Glucose 134 mg/dL (65-100) H 08/01/21 05:16 POC Glucose 92 mg/dL (70-105) 08/01/21 07:30 Calcium > 13.0 mg/dL (8.4-10.2) H* 08/01/21 05:16 Magnesium 1.80 mg/dL (1.7-2.3) 07/31/21 20:42 Total Bilirubin 0.20 mg/dL (0.1-1.2) 07/31/21 05:32 AST 15 units/L (5-40) 07/31/21 05:32 ALT 10 units/L (7-56) 07/31/21 05:32 Alkaline Phosphatase 110 units/L (35-129) 07/31/21 05:32 Total Creatine Kinase 120 units/L (30-135) 07/30/21 18:56 CK-MB (CK-2) 4.1 ng/mL (0.0-4.0) H 07/30/21 18:56 CK-MB (CK-2) Rel Index 3.4 (0-4) 07/30/21 18:56 Troponin T 0.096 ng/mL (0.00-0.029) H 07/30/21 18:56 Total Protein 7.0 g/dL (6.3-8.2) 07/31/21 05:32 Albumin 2.6 g/dL (3.9-5) L 07/31/21 05:32 Albumin/Globulin Ratio 0.6 % 07/31/21 05:32 Triglycerides 170 mg/dL (2-149) H 07/30/21 13:00 Cholesterol 191 mg/dL (50-199) 07/30/21 13:00 LDL Cholesterol Direct 98 mg/dL (50-130) 07/30/21 13:00 HDL Cholesterol 49 mg/dL (40-59) 07/30/21 13:00 Cholesterol/HDL Ratio 3.89 % 07/30/21 13:00 Blood Type A POSITIVE 07/30/21 18:00 Antibody Screen Negative 07/30/21 18:00 Zacarias/IV: Voiding Method External Female Catheter Active Medications - Current Medications Current Medications: Generic Name Dose Route Start Last Admin Trade Name Freq PRN Reason Stop Dose Admin Acetaminophen 650 mg 07/30/21 14:16 Acetaminophen 325 Mg Tab PO Q4H PRN Pain MILD(1-3)/Fever >100.5/BERNABE Hydrocodone Bitart/Acetaminophen 1 each 07/30/21 14:23 Hydrocodone/Acetaminophen 5-325 Mg Tab PO Q4H PRN Pain, Moderate (4-6) Alprazolam 0.25 mg 07/31/21 12:04 Alprazolam 0.25 Mg Tab PO Q8H PRN Anxiety Amlodipine Besylate 10 mg 08/01/21 10:00 Amlodipine 10 Mg Tab PO DAILY [facility] Dextrose 0 ml 07/31/21 17:02 07/31/21 17:22 Dextrose 10% *Hypoglycemia IV 75 ml PRN PRN Administration Hypoglycemia Protocol Famotidine 10 mg 08/01/21 10:00 Famotidine 10 Mg Tab PO BID [facility] Heparin Sodium (Porcine) 5,000 unit 07/30/21 14:30 07/31/21 21:49 Heparin 5,000 Unit/1 Ml Vial SUB-Q 5,000 unit Q12HR JO-ANN Administration Hydralazine HCl 50 mg 07/31/21 18:00 08/01/21 06:29 Hydralazine 25 Mg Tab PO 50 mg Q8HR JO-ANN Administration Dextrose/Sodium Chloride 1,000 mls @ 100 mls/hr 07/31/21 18:00 07/31/21 17:21 D5ns IV 100 mls/hr DIRECT JO-ANN Administration Labetalol HCl 10 mg 07/31/21 17:23 08/01/21 05:03 Labetalol 20 Mg/4 Ml Inj IV 10 mg Q4HR PRN Administration Hypertension Metoclopramide HCl 10 mg 07/30/21 14:16 Metoclopramide 10 Mg/2 Ml Inj IV Q6H PRN Nausea And Vomiting Metoprolol Tartrate 100 mg 07/31/21 22:00 07/31/21 21:48 Metoprolol Tartrate 100 Mg Tab PO 100 mg BID JO-ANN Administration Morphine Sulfate 2 mg 07/30/21 14:16 Morphine 2 Mg/1 Ml Inj IV Q4H PRN Pain, Moderate (4-6) Ondansetron HCl 4 mg 07/30/21 14:16 Ondansetron 4 Mg/2 Ml Inj IV Q8H PRN Nausea And Vomiting Oxycodone/Acetaminophen 1 tab 07/30/21 14:16 07/31/21 12:13 Oxycodone /Acetaminophen 5-325mg Tab PO 1 tab Q6H PRN Administration Pain, Moderate (4-6) Sodium Chloride 10 ml 07/30/21 15:00 07/31/21 22:00 Sodium Chloride 0.9% 10 Ml Flush Syringe IV 10 ml BID JO-ANN Administration Sodium Chloride 10 ml 07/30/21 14:16 Sodium Chloride 0.9% 10 Ml Flush Syringe IV PRN PRN LINE FLUSH Tramadol HCl 50 mg 07/30/21 14:23 Tramadol 50 Mg Tab PO Q4H PRN Pain, Mild (1-3)
--- NOTE | 2021-08-01 10:43 | Electrocardiograph Report ---
[facility] Test Date: 2021-07-30 Test Time: 13:13:08 Pat Name: KERI PEDROZA Department: Room: A470 1 Gender: F Manager Loan: ABBY : 1970 Requested By: BOUBACAR CHAVEZ Order Number: [id number] Reading MD: Mikey Crews Measurements Intervals [place] Rate: 117 P: 16 IN: 190 QRS: -46 QRSD: 101 T: -19 QT: 325 QTc: 454 Interpretive Statements Sinus tachycardia Left atrial enlargement LVH with secondary repolarization abnormality ST elevation secondary to LVH No previous ECG available for comparison Electronically Signed On 08-01-2021 10:42:36 EDT by Mikey Crews
--- NOTE | 2021-08-01 10:45 | Electrocardiograph Report ---
[facility] Test Date: 2021-07-30 Test Time: 15:54:32 Pat Name: KERI PEDROZA Department: Room: A470 1 Gender: F Therapeutic Recreation Director: ALICE : 1970 Requested By: ROBB WHARTON Order Number: [id number] Reading MD: Mikey Crews Measurements Intervals [place] Rate: 75 P: -32 OR: 181 QRS: -28 QRSD: 103 T: -12 QT: 367 QTc: 410 Interpretive Statements Sinus rhythm Left ventricular hypertrophy Probable inferior infarct, recent Extensive anterior infarct, acute Compared to ECG 07/30/2021 13:13:08 Rate is slower,otherwise no significant change noted. Electronically Signed On 08-01-2021 10:45:19 EDT by Mikey Crews
--- NOTE | 2021-08-01 10:48 | Electrocardiograph Report ---
[facility] Test Date: 2021-07-30 Test Time: 15:55:39 Pat Name: KERI PEDROZA Department: Room: A470 1 Gender: F Director Talent: ALICE : 1970 Requested By: NAYE HENRY Order Number: [id number] Reading MD: Mikey Crews Measurements Intervals [place] Rate: 77 P: -32 IL: 171 QRS: -30 QRSD: 101 T: -9 QT: 364 QTc: 412 Interpretive Statements Sinus rhythm Left ventricular hypertrophy Probable inferior infarct, recent consider Anterolateral infarct, acute,however ST elevations can be secondary to LVH. No significant change from EKG done approximately 2 1/2 hours ago. Electronically Signed On 08-01-2021 10:48:04 EDT by Mikey Crews
[2021-08-01] MEDS ORDERED: DIPHENOXYLATE/ATROPINE TAB PO NR (11:00)
[2021-08-01] MEDS: METOPROLOL TARTRATE 100 MG TAB PO SCH ×2 (11:29→21:31)
[2021-08-01] MEDS: HEPARIN 5,000 UNIT/1 ML VIAL SUB-Q SCH ×2 (11:59→21:31)
[2021-08-01] MEDS: amLODIPine 10 MG TAB PO SCH (12:31)
[2021-08-01] MEDS: FAMOTIDINE 10 MG TAB PO SCH ×2 (12:32→21:32)
--- NOTE | 2021-08-01 13:10 | Progress Note ---
Assessment and Plan - Patient Problems (1) POLLO (acute kidney injury) Current Visit: Yes Status: Acute (2) Abnormal EKG Current Visit: Yes Status: Acute Subjective Date of service: 08/01/21 Interval history: NO CV C/O....SORE FROM DIARRHEA Objective Vital Signs Temp Pulse Resp BP BP Pulse Ox 08/01/21 10:00 97 08/01/21 09:22 98.5 F 101 H 16 131/89 99 08/01/21 08:00 100 H 08/01/21 06:46 100 H 18 185/114 99 08/01/21 05:21 98.8 F 99 H 20 182/109 100 08/01/21 00:18 98.5 F 74 16 173/97 100 07/31/21 21:24 87 18 169/95 99 07/31/21 20:18 98 07/31/21 20:12 80 07/31/21 19:10 98.3 F 16 07/31/21 19:08 80 193/108 100 07/31/21 16:51 97.7 F 81 18 190/110 98 - Physical Examination General: No Apparent Distress HEENT: Positive: Normocephaly Neck: Positive: trachea midline Cardiac: Positive: Reg Rate and Rhythm Lungs: Positive: clear to auscultation Neuro: Positive: Grossly Intact Abdomen: Positive: Unremarkable Extremities: Present: normal - Labs and Meds CBC 08/01/21 Range/Units 05:16 WBC 13.4 H (4.5-11.0) K/mm3 RBC 3.44 L (3.65-5.03) M/mm3 Hgb 7.6 L (10.1-14.3) gm/dl Hct 24.3 L (30.3-42.9) % Plt Count 418 (140-440) K/mm3 Lymph # (Auto) 0.9 L (1.2-5.4) K/mm3 [place] # (Auto) 0.5 (0.0-0.8) K/mm3 Eos # (Auto) 0.0 (0.0-0.4) K/mm3 Baso # (Auto) 0.0 (0.0-0.1) K/mm3 Comprehensive Metabolic Panel 07/31/21 08/01/21 Range/Units 20:42 05:16 Sodium 140 (137-145) mmol/L Potassium 3.8 D 3.7 (3.6-5.0) mmol/L Chloride 105.5 (98-107) mmol/L Carbon Dioxide 25 (22-30) mmol/L BUN 24 H (7-17) mg/dL Creatinine 1.6 H (0.6-1.2) mg/dL Glucose 134 H (65-100) mg/dL Calcium > 13.0 H* (8.4-10.2) mg/dL
[2021-08-01] MEDS: oxyCODONE /ACETAMINOPHEN 5-325MG TAB PO PRN (14:29)
[2021-08-01] MEDS: D5W/0.9% NACL 1,000 ML IV SCH (21:36)
--- NOTE | 2021-08-01 23:16 | Event Note ---
Date: 08/01/21 Appreciate nephrology consult- note creatinine 1.6, calcium >13. Official consult in AM- for now, will check PTH, vitamin D panel, SPEP with immu nofixation. Check urine studies and renal imaging- orders placed.
[2021-08-02] MEDS: hydrALAZINE 25 MG TAB PO SCH ×4 (05:10→21:57)
[2021-08-02 05:52] LABS: BUN/Creatinine Ratio 15; Blood Urea Nitrogen 25 mg/dL (7-17); Hemolysis Index 1
[2021-08-02 06:17] LABS: Calcium > 13.0 mg/dL (8.4-10.2)
[2021-08-02] MEDS: D5W/0.9% NACL 1,000 ML IV SCH (07:22)
--- NOTE | 2021-08-02 08:37 | Consultation ---
History of Present Illness - Reason for Consult Consult date: 08/02/21 other (hypercalcemia) - History of Present Illness Mrs. Calvert is a 51yo with hypertension and diabetes mellitus who presented to the emergency room via EMS on Jul 30 w/ generalized weakness/fatigue. In the ED, labs were notable for Ca > 13. EKG revealed ST elevations and QT prolongations. Patient was taken to slab puller emergently. Findings were unremarkable. During hospitalization, calcium has failed to correct. Nephrology has now been consulted for work up/management. Patient reports a prior hx of hypercalcemia at [facility] in Mar 2021. Presently, patient denies nausea, abdominal discomfort, generalized pain. She reports diarrhea. Patient feels confused. Past History Past Medical History: diabetes, hypertension Past Surgical History: No surgical history Social history: no significant social history Family history: no significant family history Medications and Allergies Allergies Allergy/AdvReac Type Severity Reaction Status Date / Time No Known Allergies Allergy Unverified 07/30/21 13:38 Home Medications Medication Instructions Recorded Confirmed Last Taken Type Ferrous Sulfate [Iron 325 MG] 325 mg PO DAILY 07/30/21 07/30/21 1 Day Ago History ~07/29/21 Hydralazine HCl 50 mg PO DAILY 07/30/21 07/30/21 1 Day Ago History ~07/29/21 Insulin Glargine,Hum.rec.anlog 12 unit SQ QHS 07/30/21 07/30/21 1 Day Ago History [Lantus Solostar] ~07/29/21 Insulin Lispro [Admelog] See Protocol SQ QACHS 07/30/21 07/30/21 1 Day Ago History ~07/29/21 Metoprolol Tartrate [Lopressor] 100 mg PO BID 07/30/21 07/30/21 1 Day Ago History ~07/29/21 amLODIPine 10 mg PO DAILY 07/30/21 07/30/21 1 Day Ago History ~07/29/21 lisinopriL [Zestril TAB] 40 mg PO QDAY 07/30/21 07/30/21 1 Day Ago History ~07/29/21 traMADoL [Ultram 50 MG tab] 50 mg PO Q6HR PRN 07/30/21 07/30/21 1 Day Ago History ~07/29/21 Active Meds: Active Medications Acetaminophen (Acetaminophen 325 Mg Tab) 650 mg PO Q4H PRN PRN Reason: Pain MILD(1-3)/Fever >100.5/BERNABE Hydrocodone Bitart/Acetaminophen (Hydrocodone/Acetaminophen 5-325 Mg Tab) 1 e ach PO Q4H PRN PRN Reason: Pain, Moderate (4-6) Alprazolam (Alprazolam 0.25 Mg Tab) 0.25 mg PO Q8H PRN PRN Reason: Anxiety Amlodipine Besylate (Amlodipine 10 Mg Tab) 10 mg PO DAILY [facility] Last Admin: 08/01/21 12:31 Dose: 10 mg Dextrose (Dextrose 10% *Hypoglycemia) 0 ml IV PRN PRN; Protocol PRN Reason: Hypoglycemia Last Admin: 07/31/21 17:22 Dose: 75 ml Famotidine (Famotidine 10 Mg Tab) 10 mg PO BID [facility] Last Admin: 08/01/21 21:32 Dose: 10 mg Heparin Sodium (Porcine) (Heparin 5,000 Unit/1 Ml Vial) 5,000 unit SUB-Q Q12HR [facility] Last Admin: 08/01/21 21:31 Dose: 5,000 unit Hydralazine HCl (Hydralazine 25 Mg Tab) 50 mg PO Q8HR [facility] Last Admin: 08/02/21 05:13 Dose: Not Given Dextrose/Sodium Chloride (D5ns) 1,000 mls @ 100 mls/hr IV DIRECT [facility] Last Admin: 08/02/21 07:22 Dose: 100 mls/hr Labetalol HCl (Labetalol 20 Mg/4 Ml Inj) 10 mg IV Q4HR PRN PRN Reason: Hypertension Last Admin: 08/01/21 05:03 Dose: 10 mg Metoclopramide HCl (Metoclopramide 10 Mg/2 Ml Inj) 10 mg IV Q6H PRN PRN Reason: Nausea And Vomiting Metoprolol Tartrate (Metoprolol Tartrate 100 Mg Tab) 100 mg PO BID [facility] Last Admin: 08/01/21 21:31 Dose: 100 mg Morphine Sulfate (Morphine 2 Mg/1 Ml Inj) 2 mg IV Q4H PRN PRN Reason: Pain, Moderate (4-6) Ondansetron HCl (Ondansetron 4 Mg/2 Ml Inj) 4 mg IV Q8H PRN PRN Reason: Nausea And Vomiting Oxycodone/Acetaminophen (Oxycodone /Acetaminophen 5-325mg Tab) 1 tab PO Q6H PRN PRN Reason: Pain, Moderate (4-6) Last Admin: 08/01/21 14:29 Dose: 1 tab Sodium Chloride (Sodium Chloride 0.9% 10 Ml Flush Syringe) 10 ml IV BID JO-ANN Last Admin: 08/01/21 21:32 Dose: 10 ml Sodium Chloride (Sodium Chloride 0.9% 10 Ml Flush Syringe) 10 ml IV PRN PRN PRN Reason: LINE FLUSH Tramadol HCl (Tramadol 50 Mg Tab) 50 mg PO Q4H PRN PRN Reason: Pain, Mild (1-3) Review of Systems All systems: negative Cardiovascular: no palpitations Gastrointestinal: diarrhea, no abdominal pain Musculoskeletal: other (denies generalized ache/pain), no muscle cramps Neurological: confusion, no numbness, no tingling Exam - Vital Signs Vital signs: Vital Signs Temp Pulse Resp BP Pulse Ox 97.1 F L 78 13 140/92 99 07/30/21 13:11 07/30/21 13:11 07/30/21 13:11 07/30/21 13:11 07/30/21 13:11 - General Appearance General appearance: well-developed, well-nourished EENT: ATNC Respiratory: Clear to Ascultation Heart: regular, S1S2 Gastrointestinal: Present: normal Integumentary: no rash, warm and dry Neurologic: other (occasional delay in response to questions; oriented to person, place,year) Psychiatric: mood/affect appropriate, cooperative Results - Lab Results 08/01/21 05:16 08/02/21 05:09 Most recent lab results Calcium > 13.0 mg/dL (8.4-10.2) H* 08/02/21 05:09 Magnesium 1.70 mg/dL (1.7-2.3) 08/02/21 05:09 Assessment and Plan Impression: * Hypercalcemia * Acute kidney injury secondary to volume depletion related to hypercalcemia * Abnormal EKG with tombstone ST elevations and QT prolongation --Emergent [facility] unremarkable (Jul 30) * Anemia * Hypokalemia Plan: * Continue aggressive IVF - IVF on hold upon entering room; RN to resume * Start Calcitonin 0.4 units/kg q12 hours - increase to 0.8 units/kg if Ca does not respond to initial dosing * Work up pending - PTH, SIFE, SPEP. Will also add RADHA to labs * Obtain OSH records * Dose medications for renal function * Avoid nephrotoxins * Patient is not cleared for discharge from a renal standpoint
--- NOTE | 2021-08-02 09:27 | Progress Note ---
Assessment and Plan Assessment and plan: --STEMI (ST elevation myocardial infarction) Current Visit: Yes Status: Acute Patient presented with generalized weakness. She is diabetic and hypertensive. She has an EKG that has ST elevation concerning for AMI. Cardiology recommendations reviewed s/p emergency cardiac cath, normal coronaries findings do not represent a TN and cardiology believes that this could represent Brugada syndrome. IV fluids and supportive care Cardiology following --Severe hypokalemia; Replenished with IV and oral KCl Monitor potassium and magnesium level electrolytes Potassium and magnesium levels within normal limits today --Hypercalcemia; Closely monitor electrolytes Nephrology consulted Check PTH, consider calcitonin therapy -POLLO (acute kidney injury) Current Visit: Yes Status: Acute vasomotor nephropathy Creatinine trending down 1.6 -1.4 Continue IV hydration, monitor renal function Avoid nephrotoxin. Renal dosing of medications --Dehydration ; Acute kidney injury , hypercalcemia Continue IV hydration monitor electrolytes --Hypertension Current Visit: Yes Status: Chronic Continue antihypertensives and adjust medications --T2DM (type 2 diabetes mellitus) Current Visit: Yes Status: Chronic Coverage for now and hemoglobin A1c to be checked --History of ?rectal cancer: Patient is unable to give the details Try to get records from the other hospital --DVT prophylaxis Current Visit: Yes Status: Acute On anticoagulation GI prophylaxis --Advance care planning Current Visit: Yes Status: Acute Disease education conducted, care plan discussed, diagnosis discussed, prognosis discussed. Patient is full code. Patient acknowledges understanding and agreement with care plan. Patient's electrolyte abnormalities addressed, treatment plan reviewed +30 minutes. 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 Vital signs noted Hospitalist Physical - Constitutional Vitals: Temp Pulse Resp BP Pulse Ox 97.8 F 78 20 144/87 100 08/02/21 08:45 08/02/21 04:54 08/02/21 08:45 08/02/21 08:45 08/02/21 04:54 General appearance: Present: no acute distress, cachectic, other (Malnourished, confused at times) - EENT Eyes: Present: PERRL, EOM intact - Neck Neck: Present: supple, normal ROM - Respiratory Respiratory effort: normal Respiratory: bilateral: diminished, negative: rales, rhonchi, wheezing - Cardiovascular Rhythm: regular Heart Sounds: Present: S1 & S2 - Extremities Extremities: no ischemia, No edema - Abdominal General gastrointestinal: soft, non-tender, non-distended, normal bowel sounds - Integumentary Integumentary: Present: clear, warm - Psychiatric Psychiatric: appropriate mood/affect, cooperative - Neurologic Neurologic: CNII-XII intact, moves all extremities HEART Score - HEART Score Troponin: Troponin T 0.096 ng/mL (0.00-0.029) H 07/30/21 18:56 Results - Labs CBC & Chem 7: 08/01/21 05:16 08/02/21 05:09 Labs: Laboratory Last Values WBC 13.4 K/mm3 (4.5-11.0) H 08/01/21 05:16 RBC 3.44 M/mm3 (3.65-5.03) L 08/01/21 05:16 Hgb 7.6 gm/dl (10.1-14.3) L 08/01/21 05:16 Hct 24.3 % (30.3-42.9) L 08/01/21 05:16 MCV 70 fl (79-97) L 08/01/21 05:16 MCH 22 pg (28-32) L 08/01/21 05:16 MCHC 32 % (30-34) 08/01/21 05:16 RDW 18.9 % (13.2-15.2) H 08/01/21 05:16 Plt Count 418 K/mm3 (140-440) 08/01/21 05:16 Lymph % (Auto) 6.5 % (13.4-35.0) L 08/01/21 05:16 Pettis % (Auto) 3.6 % (0.0-7.3) 08/01/21 05:16 Eos % (Auto) 0.3 % (0.0-4.3) 08/01/21 05:16 Baso % (Auto) 0.2 % (0.0-1.8) 08/01/21 05:16 Lymph # (Auto) 0.9 K/mm3 (1.2-5.4) L 08/01/21 05:16 Pettis # (Auto) 0.5 K/mm3 (0.0-0.8) 08/01/21 05:16 Eos # (Auto) 0.0 K/mm3 (0.0-0.4) 08/01/21 05:16 Baso # (Auto) 0.0 K/mm3 (0.0-0.1) 08/01/21 05:16 Seg Neutrophils % 89.4 % (40.0-70.0) H 08/01/21 05:16 Seg Neutrophils # 12.0 K/mm3 (1.8-7.7) H 08/01/21 05:16 PT 13.9 Sec. (12.2-14.9) 07/30/21 13:00 INR 0.97 (0.87-1.13) 07/30/21 13:00 APTT 24.9 Sec. (24.2-36.6) 07/30/21 13:00 Sodium 139 mmol/L (137-145) 08/02/21 05:09 Potassium 3.7 mmol/L (3.6-5.0) 08/02/21 05:09 Chloride 103.6 mmol/L (98-107) 08/02/21 05:09 Carbon Dioxide 25 mmol/L (22-30) 08/02/21 05:09 Anion Gap 14 mmol/L 08/02/21 05:09 BUN 25 mg/dL (7-17) H 08/02/21 05:09 Creatinine 1.7 mg/dL (0.6-1.2) H 08/02/21 05:09 Estimated GFR 38 ml/min 08/02/21 05:09 BUN/Creatinine Ratio 15 % 08/02/21 05:09 Glucose 158 mg/dL (65-100) H 08/02/21 05:09 POC Glucose 157 mg/dL (70-105) H 08/02/21 07:36 Calcium > 13.0 mg/dL (8.4-10.2) H* 08/02/21 05:09 Magnesium 1.70 mg/dL (1.7-2.3) 08/02/21 05:09 Total Bilirubin 0.20 mg/dL (0.1-1.2) 07/31/21 05:32 AST 15 units/L (5-40) 07/31/21 05:32 ALT 10 units/L (7-56) 07/31/21 05:32 Alkaline Phosphatase 110 units/L (35-129) 07/31/21 05:32 Total Creatine Kinase 120 units/L (30-135) 07/30/21 18:56 CK-MB (CK-2) 4.1 ng/mL (0.0-4.0) H 07/30/21 18:56 CK-MB (CK-2) Rel Index 3.4 (0-4) 07/30/21 18:56 Troponin T 0.096 ng/mL (0.00-0.029) H 07/30/21 18:56 Total Protein 7.0 g/dL (6.3-8.2) 07/31/21 05:32 Albumin 2.6 g/dL (3.9-5) L 07/31/21 05:32 Albumin/Globulin Ratio 0.6 % 07/31/21 05:32 Triglycerides 170 mg/dL (2-149) H 07/30/21 13:00 Cholesterol 191 mg/dL (50-199) 07/30/21 13:00 LDL Cholesterol Direct 98 mg/dL (50-130) 07/30/21 13:00 HDL Cholesterol 49 mg/dL (40-59) 07/30/21 13:00 Cholesterol/HDL Ratio 3.89 % 07/30/21 13:00 PTH Intact 11.42 pg/mL (15-65) L 08/02/21 05:09 Blood Type A POSITIVE 07/30/21 18:00 Antibody Screen Negative 07/30/21 18:00 Zacarias/IV: Voiding Method Incontinent Active Medications - Current Medications Current Medications: Generic Name Dose Route Start Last Admin Trade Name Freq PRN Reason Stop Dose Admin Acetaminophen 650 mg 07/30/21 14:16 Acetaminophen 325 Mg Tab PO Q4H PRN Pain MILD(1-3)/Fever >100.5/BERNABE Hydrocodone Bitart/Acetaminophen 1 each 07/30/21 14:23 Hydrocodone/Acetaminophen 5-325 Mg Tab PO Q4H PRN Pain, Moderate (4-6) Alprazolam 0.25 mg 07/31/21 12:04 Alprazolam 0.25 Mg Tab PO Q8H PRN Anxiety Amlodipine Besylate 10 mg 08/01/21 10:00 08/01/21 12:31 Amlodipine 10 Mg Tab PO 10 mg DAILY JO-ANN Administration Calcitonin [place] 250 unit 08/02/21 10:00 Calcitonin,[place],Synthetic 400 Unit/2 Ml Inj Mdv 4 unit/kg (250 unit) IM Q12HR JO-ANN Dextrose 0 ml 07/31/21 17:02 07/31/21 17:22 Dextrose 10% *Hypoglycemia IV 75 ml PRN PRN Administration Hypoglycemia Protocol Famotidine 10 mg 08/01/21 10:00 08/01/21 21:32 Famotidine 10 Mg Tab PO 10 mg BID JO-ANN Administration Heparin Sodium (Porcine) 5,000 unit 07/30/21 14:30 08/01/21 21:31 Heparin 5,000 Unit/1 Ml Vial SUB-Q 5,000 unit Q12HR JO-ANN Administration Hydralazine HCl 50 mg 07/31/21 18:00 08/02/21 05:13 Hydralazine 25 Mg Tab PO Not Given Q8HR JO-ANN Dextrose/Sodium Chloride 1,000 mls @ 100 mls/hr 07/31/21 18:00 08/02/21 07:22 D5ns IV 100 mls/hr DIRECT JO-ANN Administration Labetalol HCl 10 mg 07/31/21 17:23 08/01/21 05:03 Labetalol 20 Mg/4 Ml Inj IV 10 mg Q4HR PRN Administration Hypertension Metoclopramide HCl 10 mg 07/30/21 14:16 Metoclopramide 10 Mg/2 Ml Inj IV Q6H PRN Nausea And Vomiting Metoprolol Tartrate 100 mg 07/31/21 22:00 08/01/21 21:31 Metoprolol Tartrate 100 Mg Tab PO 100 mg BID JO-ANN Administration Morphine Sulfate 2 mg 07/30/21 14:16 Morphine 2 Mg/1 Ml Inj IV Q4H PRN Pain, Moderate (4-6) Ondansetron HCl 4 mg 07/30/21 14:16 Ondansetron 4 Mg/2 Ml Inj IV Q8H PRN Nausea And Vomiting Oxycodone/Acetaminophen 1 tab 07/30/21 14:16 08/01/21 14:29 Oxycodone /Acetaminophen 5-325mg Tab PO 1 tab Q6H PRN Administration Pain, Moderate (4-6) Sodium Chloride 10 ml 07/30/21 15:00 08/01/21 21:32 Sodium Chloride 0.9% 10 Ml Flush Syringe IV 10 ml BID JO-ANN Administration Sodium Chloride 10 ml 07/30/21 14:16 Sodium Chloride 0.9% 10 Ml Flush Syringe IV PRN PRN LINE FLUSH Tramadol HCl 50 mg 07/30/21 14:23 Tramadol 50 Mg Tab PO Q4H PRN Pain, Mild (1-3)
[2021-08-02] MEDS ORDERED: CALCITONIN,SALMON,SYNTHETIC 400 UNIT/2 ML INJ MDV IM SCH (10:00)
[2021-08-02] MEDS: HEPARIN 5,000 UNIT/1 ML VIAL SUB-Q SCH ×2 (10:25→21:57)
[2021-08-02] MEDS: METOPROLOL TARTRATE 100 MG TAB PO SCH ×2 (10:25→21:57)
[2021-08-02] MEDS: FAMOTIDINE 10 MG TAB PO SCH ×2 (10:26→21:57)
--- NOTE | 2021-08-02 13:05 | Progress Note ---
Assessment and Plan - Patient Problems (1) PLOLO (acute kidney injury) Current Visit: Yes Status: Acute (2) Abnormal EKG Current Visit: Yes Status: Acute Subjective Date of service: 08/02/21 Interval history: NO CV C/O....SORE FROM DIARRHEA Objective Vital Signs Temp Pulse Resp BP BP Pulse Ox 08/02/21 10:00 97 08/02/21 08:45 97.8 F 20 144/87 08/02/21 04:54 78 100 08/02/21 04:53 98.1 F 17 143/85 08/02/21 02:10 79 18 123/76 99 08/02/21 00:19 97 08/02/21 00:00 73 08/01/21 23:46 97.9 F 73 17 139/82 97 08/01/21 20:39 97.9 F 73 17 121/83 97 - Physical Examination General: No Apparent Distress HEENT: Positive: Normocephaly Neck: Positive: trachea midline Cardiac: Positive: Regular Rhythm Lungs: Positive: clear to auscultation Neuro: Positive: Grossly Intact Abdomen: Positive: Unremarkable Extremities: Present: normal - Labs and Meds Comprehensive Metabolic Panel 08/02/21 Range/Units 05:09 Sodium 139 (137-145) mmol/L Potassium 3.7 (3.6-5.0) mmol/L Chloride 103.6 (98-107) mmol/L Carbon Dioxide 25 (22-30) mmol/L BUN 25 H (7-17) mg/dL Creatinine 1.7 H (0.6-1.2) mg/dL Glucose 158 H (65-100) mg/dL Calcium > 13.0 H* (8.4-10.2) mg/dL
[2021-08-02] MEDS: CALCITONIN,SALMON,SYNTHETIC 400 UNIT/2 ML INJ MDV IM SCH ×2 (13:25→21:56)
[2021-08-02] MEDS: amLODIPine 10 MG TAB PO SCH (15:25)
--- NOTE | 2021-08-02 17:25 | Ultrasound Report ---
ULTRASOUND RENAL INDICATION / CLINICAL INFORMATION: POLLO. COMPARISON: None available. FINDINGS: RIGHT KIDNEY: Length = 11.3 cm. - Echogenicity: Mildly echogenic. - Parenchymal Thickness: Normal. - Hydronephrosis: Moderate - Cyst / Mass: None. - Stones: None seen. LEFT KIDNEY: Length = 10.3 cm. - Echogenicity: Mildly echogenic. - Parenchymal Thickness: Normal. - Hydronephrosis: None. - Cyst / Mass: None. - Stones: None seen. URINARY BLADDER: Distended. No significant abnormality. Patient refused post void imaging. FREE FLUID: None. ADDITIONAL FINDINGS: None. IMPRESSION: 1. Moderate right hydronephrosis. An obstructing source is not identified sonographically. 2. Findings suggestive of bilateral medical renal disease. Scribed by: Lissette Hoff RDMS, ADRIENNE, AURA Scribed: 08/02/2021 3:57 PM I have reviewed the images, agree with this report, and edited this report as needed. Signer Name: Tejinder Guzmán MD Signed: 08/02/2021 5:20 PM Workstation Name: [id number]
[2021-08-03] MEDS: hydrALAZINE 25 MG TAB PO SCH ×3 (05:11→21:54)
--- NOTE | 2021-08-03 09:03 | Progress Note ---
Assessment and Plan Impression: * Hypercalcemia --PTH 11 * Acute kidney injury secondary to volume depletion related to hypercalcemia * Abnormal EKG with tombstone ST elevations and QT prolongation --Emergent [facility] unremarkable (Jul 30) * Anemia * Hypokalemia Plan: * Clinically patient seems improved - response to questions not as slow c/w yesterday; AM labs are pending * Continue IVF - increase rate to 125ml/hour * Continue Calcitonin 0.4 units/kg q12 hours - increase to 0.8 units/kg if Ca does not respond to initial dosing * Work up pending - SIFE, SPEP, RADHA pending * Obtain OSH records * Dose medications for renal function * Avoid nephrotoxins * Patient is not cleared for discharge from a renal standpoint Subjective Date of service: 08/03/21 Interval history: Patient has no complaints. She reports that she is feeling better. Objective - Vital Signs Vital signs: Vital Signs - 12hr 08/02/21 08/02/21 08/03/21 22:00 22:54 00:00 Temperature 97.8 F Pulse Rate 70 93 H Respiratory 18 Rate Blood Pressure Blood Pressure 134/83 [Left] O2 Sat by Pulse 97 100 Oximetry 08/03/21 08/03/21 04:05 08:16 Temperature 98.4 F 98.2 F Pulse Rate 50 L Respiratory 18 18 Rate Blood Pressure 160/85 131/75 Blood Pressure [Left] O2 Sat by Pulse 83 L Oximetry - General Appearance General appearance: well-developed, well-nourished EENT: ATNC Respiratory: Present: Clear to Ascultation Cardiology: regular, S1S2 Gastrointestinal: normal Integumentary: no rash Neurologic: alert and oriented x3 Psychiatric: cooperative - Lab 08/01/21 05:16 08/02/21 05:09 Most recent lab results Calcium > 13.0 mg/dL (8.4-10.2) H* 08/02/21 05:09 Magnesium 1.70 mg/dL (1.7-2.3) 08/02/21 05:09 Medications & Allergies - Medications Allergies/Adverse Reactions: Allergies No Known Allergies Allergy (Unverified 07/30/21 13:38) Home Medications: Home Medications Medication Instructions Recorded Confirmed Last Taken Type Ferrous Sulfate [Iron 325 MG] 325 mg PO DAILY 07/30/21 07/30/21 1 Day Ago History ~07/29/21 Hydralazine HCl 50 mg PO DAILY 07/30/21 07/30/21 1 Day Ago History ~07/29/21 Insulin Glargine,Hum.rec.anlog 12 unit SQ QHS 07/30/21 07/30/21 1 Day Ago History [Lantus Solostar] ~07/29/21 Insulin Lispro [Admelog] See Protocol SQ QACHS 07/30/21 07/30/21 1 Day Ago Histo ry ~07/29/21 Metoprolol Tartrate [Lopressor] 100 mg PO BID 07/30/21 07/30/21 1 Day Ago Histo ry ~07/29/21 amLODIPine 10 mg PO DAILY 07/30/21 07/30/21 1 Day Ago History ~07/29/21 lisinopriL [Zestril TAB] 40 mg PO QDAY 07/30/21 07/30/21 1 Day Ago History ~07/29/21 traMADoL [Ultram 50 MG tab] 50 mg PO Q6HR PRN 07/30/21 07/30/21 1 Day Ago History ~07/29/21 Active Medications: Generic Name Dose Route Start Last Admin Trade Name Freq PRN Reason Stop Dose Admin Acetaminophen 650 mg 07/30/21 14:16 Acetaminophen 325 Mg Tab PO Q4H PRN Pain MILD(1-3)/Fever >100.5/BERNABE Hydrocodone Bitart/Acetaminophen 1 each 07/30/21 14:23 Hydrocodone/Acetaminophen 5-325 Mg Tab PO Q4H PRN Pain, Moderate (4-6) Alprazolam 0.25 mg 07/31/21 12:04 Alprazolam 0.25 Mg Tab PO Q8H PRN Anxiety Amlodipine Besylate 10 mg 08/01/21 10:00 08/02/21 15:25 Amlodipine 10 Mg Tab PO 10 mg DAILY JO-ANN Administration Calcitonin [place] 200 unit 08/02/21 10:00 08/02/21 21:56 Calcitonin,[place],Synthetic 400 Unit/2 Ml Inj Mdv IM 200 unit Q12HR JO-ANN Administration Dextrose 0 ml 07/31/21 17:02 07/31/21 17:22 Dextrose 10% *Hypoglycemia IV 75 ml PRN PRN Administration Hypoglycemia Protocol Famotidine 10 mg 08/01/21 10:00 08/02/21 21:57 Famotidine 10 Mg Tab PO 10 mg BID JO-ANN Administration Heparin Sodium (Porcine) 5,000 unit 07/30/21 14:30 08/02/21 21:57 Heparin 5,000 Unit/1 Ml Vial SUB-Q 5,000 unit Q12HR JO-ANN Administration Hydralazine HCl 50 mg 07/31/21 18:00 08/03/21 05:11 Hydralazine 25 Mg Tab PO 50 mg Q8HR JO-ANN Administration Dextrose/Sodium Chloride 1,000 mls @ 100 mls/hr 07/31/21 18:00 08/02/21 07:22 D5ns IV 100 mls/hr DIRECT JO-ANN Administration Labetalol HCl 10 mg 07/31/21 17:23 08/01/21 05:03 Labetalol 20 Mg/4 Ml Inj IV 10 mg Q4HR PRN Administration Hypertension Metoclopramide HCl 10 mg 07/30/21 14:16 Metoclopramide 10 Mg/2 Ml Inj IV Q6H PRN Nausea And Vomiting Metoprolol Tartrate 100 mg 07/31/21 22:00 08/02/21 21:57 Metoprolol Tartrate 100 Mg Tab PO 100 mg BID JO-ANN Administration Morphine Sulfate 2 mg 07/30/21 14:16 Morphine 2 Mg/1 Ml Inj IV Q4H PRN Pain, Moderate (4-6) Ondansetron HCl 4 mg 07/30/21 14:16 Ondansetron 4 Mg/2 Ml Inj IV Q8H PRN Nausea And Vomiting Oxycodone/Acetaminophen 1 tab 07/30/21 14:16 08/01/21 14:29 Oxycodone /Acetaminophen 5-325mg Tab PO 1 tab Q6H PRN Administration Pain, Moderate (4-6) Sodium Chloride 10 ml 07/30/21 15:00 08/02/21 21:58 Sodium Chloride 0.9% 10 Ml Flush Syringe IV 10 ml BID JO-ANN Administration Sodium Chloride 10 ml 07/30/21 14:16 Sodium Chloride 0.9% 10 Ml Flush Syringe IV PRN PRN LINE FLUSH Tramadol HCl 50 mg 07/30/21 14:23 Tramadol 50 Mg Tab PO Q4H PRN Pain, Mild (1-3)
[2021-08-03] MEDS: amLODIPine 10 MG TAB PO SCH (09:44)
[2021-08-03] MEDS: FAMOTIDINE 10 MG TAB PO SCH ×2 (09:44→21:54)
[2021-08-03] MEDS: HEPARIN 5,000 UNIT/1 ML VIAL SUB-Q SCH ×2 (09:44→21:54)
[2021-08-03] MEDS: METOPROLOL TARTRATE 100 MG TAB PO SCH ×2 (09:46→21:54)
[2021-08-03] MEDS: CALCITONIN,SALMON,SYNTHETIC 400 UNIT/2 ML INJ MDV IM SCH ×2 (11:54→22:08)
[2021-08-03] MEDS: SODIUM CHLORIDE 0.9% 1000 ML 1,000 ML IV SCH (13:00)
--- NOTE | 2021-08-03 14:42 | Progress Note ---
Assessment and Plan --Severe hypokalemia; Replenished with IV and oral KCl Monitor potassium and magnesium level electrolytes Potassium and magnesium levels within normal limits today --Hypercalcemia; Closely monitor electrolytes Nephrology consulted Check PTH, consider calcitonin therapy -POLLO (acute kidney injury) Current Visit: Yes Status: Acute vasomotor nephropathy Creatinine trending down 1.6 -1.4 Continue IV hydration, monitor renal function Avoid nephrotoxin. Renal dosing of medications --STEMI (ST elevation myocardial infarction), ruled out Current Visit: Yes Status: Acute Patient presented with generalized weakness. She is diabetic and hypertensive. She has an EKG that has ST elevation concerning for AMI. Cardiology recommendations reviewed s/p emergency cardiac cath, normal coronaries findings do not represent a [place] and cardiology believes that this could represent Brugada syndrome. IV fluids and supportive care Cardiology following --Severe hypokalemia; Replenished with IV and oral KCl Monitor potassium and magnesium level electrolytes Potassium and magnesium levels within normal limits today --Hypercalcemia; Closely monitor electrolytes Nephrology consulted low PTH, initiated on calcitonin --Dehydration ; Acute kidney injury , hypercalcemia Continue IV hydration monitor electrolytes --Hypertension Current Visit: Yes Status: Chronic Continue antihypertensives and adjust medications --T2DM (type 2 diabetes mellitus) Current Visit: Yes Status: Chronic Coverage for now and hemoglobin A1c to be checked --History of ?rectal cancer: Patient is unable to give the details Try to get records from the other hospital --DVT prophylaxis Current Visit: Yes Status: Acute On anticoagulation GI prophylaxis --Advance care planning Current Visit: Yes Status: Acute Disease education conducted, care plan discussed, diagnosis discussed, prognosis discussed. Patient is full code. Patient acknowledges understanding and agreement with care plan. Patient's electrolyte abnormalities addressed, treatment plan reviewed +30 minutes. We will closely monitor the patient and adjust the management as needed Disposition; discharge when medically stable Daily clinical course: 08/02; hypercalcemia, nephrology evaluation noted, started on calcitonin. Closely monitor electrolytes, follow cardiology evaluation recommendations 08/03: Ca level remains elevated, cont calcitonin, follow clinically, bmp tomorrow Subjective Date of service: 08/03/21 Interval history: Patient seen and examined denies any chest pain or SOB Ca level still elevated daughter at the bedside Objective - Exam Narrative Exam: General appearance: Present: no acute distress, cachectic, other (Malnourished) - EENT Eyes: Present: PERRL, EOM intact - Neck Neck: Present: supple, normal ROM - Respiratory Respiratory effort: normal Respiratory: bilateral: diminished, negative: rales, rhonchi, wheezing - Cardiovascular Rhythm: regular Heart Sounds: Present: S1 & S2 - Extremities Extremities: no ischemia, No edema - Abdominal General gastrointestinal: soft, non-tender, non-distended, normal bowel sounds - Integumentary Integumentary: Present: clear, warm - Psychiatric Psychiatric: appropriate mood/affect, cooperative - Neurologic Neurologic: CNII-XII intact, moves all extremities - Constitutional Vitals: Vital Signs - 12hr 08/03/21 08/03/21 08/03/21 04:05 08:16 10:00 Temperature 98.4 F 98.2 F Pulse Rate 50 L Respiratory 18 18 Rate Blood Pressure 160/85 131/75 Blood Pressure [Left] O2 Sat by Pulse 83 L 97 Oximetry 08/03/21 11:47 Temperature 98.3 F Pulse Rate 69 Respiratory Rate Blood Pressure Blood Pressure 126/70 [Left] O2 Sat by Pulse Oximetry - Labs CBC & Chem 7: 08/01/21 05:16 08/03/21 04:00 Labs: Abnormal lab results 08/02/21 08/02/21 08/03/21 Range/Units 15:55 21:18 08:12 POC Glucose 136 H 179 H 223 H (70-105) mg/dL 08/03/21 Range/Units 11:51 POC Glucose 257 H (70-105) mg/dL HEART Score - HEART Score Troponin: Troponin T 0.096 ng/mL (0.00-0.029) H 07/30/21 18:56
[2021-08-03 15:39] LABS: BUN/Creatinine Ratio 16; Blood Urea Nitrogen 24 mg/dL (7-17); Hemolysis Index 70
[2021-08-03 16:03] LABS: Calcium > 13.0 mg/dL (8.4-10.2)
--- NOTE | 2021-08-03 22:15 | Progress Note ---
Assessment and Plan - Patient Problems (1) Abnormal EKG Current Visit: Yes Status: Chronic Plan to address problem: -Essentially normal coronarie by [facility] in this admission -No active cardiac issue -Pending ECHO Subjective Date of service: 08/03/21 Interval history: No overnight cardiac events; No CP or SOB. Objective Vital Signs Temp Pulse Resp BP BP Pulse Ox 08/03/21 20:17 98.2 F 77 16 147/81 97 08/03/21 20:08 97 08/03/21 20:04 84 08/03/21 16:28 98.5 F 84 20 136/78 100 08/03/21 12:00 69 08/03/21 11:47 98.3 F 69 126/70 08/03/21 10:00 97 08/03/21 08:16 98.2 F 18 131/75 08/03/21 04:05 98.4 F 50 L 18 160/85 83 L 08/03/21 00:00 97.8 F 93 H 18 134/83 100 08/02/21 22:54 97 - Physical Examination General: No Apparent Distress HEENT: Positive: Normocephaly Neck: Positive: trachea midline Neuro: Positive: Grossly Intact Abdomen: Positive: Unremarkable Extremities: Present: normal - Labs and Meds Comprehensive Metabolic Panel 08/03/21 Range/Units 04:00 Sodium 140 (137-145) mmol/L Potassium 3.7 (3.6-5.0) mmol/L Chloride 104.9 (98-107) mmol/L Carbon Dioxide 21 L (22-30) mmol/L BUN 24 H (7-17) mg/dL Creatinine 1.5 H (0.6-1.2) mg/dL Glucose 160 H (65-100) mg/dL Calcium > 13.0 H* (8.4-10.2) mg/dL
[2021-08-03 23:45] LABS: Red Blood Count 3.97 M/mm3 (3.65-5.03)
[2021-08-03 23:46] LABS: Hematocrit 28.1 % (30.3-42.9); Mean Corpuscular HGB Conc 32 % (30-34); Mean Corpuscular Volume 71 fl (79-97); Platelet Count 397 K/mm3 (140-440); Red Cell Distribution Width 20.1 % (13.2-15.2)
[2021-08-04] MEDS: SODIUM CHLORIDE 0.9% 1000 ML 1,000 ML IV SCH (03:49)
[2021-08-04] MEDS: hydrALAZINE 25 MG TAB PO SCH ×3 (05:44→22:04)
[2021-08-04] MEDS: POTASSIUM CHLORIDE 10 MEQ 10 MEQ/100 ML BAG IV SCH ×4 (07:16→09:41)
[2021-08-04] MEDS: FAMOTIDINE 10 MG TAB PO SCH ×2 (09:36→22:04)
[2021-08-04] MEDS: METOPROLOL TARTRATE 100 MG TAB PO SCH ×2 (09:36→22:04)
[2021-08-04] MEDS: amLODIPine 10 MG TAB PO SCH (09:36)
[2021-08-04] MEDS: HEPARIN 5,000 UNIT/1 ML VIAL SUB-Q SCH ×2 (09:37→22:04)
[2021-08-04] MEDS ORDERED: POTASSIUM CHLORIDE 20 MEQ/15 ML PO SCH (12:00)
[2021-08-04] MEDS ORDERED: POTASSIUM CHLORIDE ER 10 MEQ TAB PO SCH (12:00)
--- NOTE | 2021-08-04 12:48 | Progress Note ---
Assessment and Plan Impression: * Hypercalcemia --PTH 11 * Acute kidney injury secondary to volume depletion related to hypercalcemia * Abnormal EKG with tombstone ST elevations and QT prolongation --Emergent [facility] unremarkable (Jul 30) * Anemia * Hypokalemia Plan: * Clinically patient seems improved - response to questions not as slow c/w yesterday; AM labs are pending * Continue IVF - change to NS w/ 40meq KCl * Continue Calcitonin 0.4 units/kg q12 hours - increase to 0.8 units/kg if Ca does not continue to improve * Obtain Mg - replete prn * Work up pending - SIFE, SPEP, RADHA pending * Obtain OSH records * Dose medications for renal function * Avoid nephrotoxins * Patient is not cleared for discharge from a renal standpoint Subjective Date of service: 08/04/21 Interval history: Patient off the floor at time of visit - 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 Objective - Exam Narrative Exam: Physical exam deferred - Patient off the floor at time of visit - Vital Signs Vital signs: Vital Signs - 12hr 08/04/21 08/04/21 08/04/21 01:18 04:48 07:16 Temperature 98.5 F 98.5 F Pulse Rate 52 L 89 91 H Pulse Rate [ Right Radial] Respiratory 16 19 18 Rate Blood Pressure 132/87 148/94 120/72 O2 Sat by Pulse 91 100 100 Oximetry 08/04/21 08/04/21 08/04/21 07:18 08:00 10:00 Temperature 98.8 F Pulse Rate 90 Pulse Rate [ 90 Right Radial] Respiratory 18 Rate Blood Pressure O2 Sat by Pulse 100 Oximetry - Lab 08/03/21 22:35 08/04/21 04:57 Most recent lab results Calcium 12.0 mg/dL (8.4-10.2) H 08/04/21 04:57 Magnesium 1.70 mg/dL (1.7-2.3) 08/02/21 05:09 Medications & Allergies - Medications Allergies/Adverse Reactions: Allergies No Known Allergies Allergy (Verified 08/03/21 12:53) Home Medications: Home Medications Medication Instructions Recorded Confirmed Last Taken Type Ferrous Sulfate [Iron 325 MG] 325 mg PO DAILY 07/30/21 08/03/21 Unknown History Hydralazine HCl 50 mg PO DAILY 07/30/21 08/03/21 Unknown History Insulin Glargine,Hum.rec.anlog 12 unit SQ QHS 07/30/21 08/03/21 Unknown History [Lantus Solostar] Insulin Lispro [Admelog] See Protocol SQ QACHS 07/30/21 08/03/21 Unknown History Metoprolol Tartrate [Lopressor] 100 mg PO BID 07/30/21 08/03/21 Unknown History amLODIPine 10 mg PO DAILY 07/30/21 08/03/21 Unknown History lisinopriL [Zestril TAB] 40 mg PO QDAY 07/30/21 08/03/21 Unknown History traMADoL [Ultram 50 MG tab] 50 mg PO Q6HR PRN 07/30/21 08/03/21 Unknown History Cyanocobalamin (Vitamin B-12) 2,500 mcg PO QDAY 08/03/21 08/03/21 Unknown History [Vitamin B12] Active Medications: Generic Name Dose Route Start Last Admin Trade Name Freq PRN Reason Stop Dose Admin Acetaminophen 650 mg 07/30/21 14:16 Acetaminophen 325 Mg Tab PO Q4H PRN Pain MILD(1-3)/Fever >100.5/BERNABE Hydrocodone Bitart/Acetaminophen 1 each 07/30/21 14:23 Hydrocodone/Acetaminophen 5-325 Mg Tab PO Q4H PRN Pain, Moderate (4-6) Alprazolam 0.25 mg 07/31/21 12:04 Alprazolam 0.25 Mg Tab PO Q8H PRN Anxiety Amlodipine Besylate 10 mg 08/01/21 10:00 08/04/21 09:36 Amlodipine 10 Mg Tab PO 10 mg DAILY JO-ANN Administration Calcitonin [place] 200 unit 08/02/21 10:00 08/03/21 22:08 Calcitonin,[place],Synthetic 400 Unit/2 Ml Inj Mdv IM 200 unit Q12HR JO-ANN Administration Dextrose 0 ml 07/31/21 17:02 07/31/21 17:22 Dextrose 10% *Hypoglycemia IV 75 ml PRN PRN Administration Hypoglycemia Protocol Famotidine 10 mg 08/01/21 10:00 08/04/21 09:36 Famotidine 10 Mg Tab PO 10 mg BID JO-ANN Administration Heparin Sodium (Porcine) 5,000 unit 07/30/21 14:30 08/04/21 09:37 Heparin 5,000 Unit/1 Ml Vial SUB-Q 5,000 unit Q12HR JO-ANN Administration Hydralazine HCl 50 mg 07/31/21 18:00 08/04/21 05:44 Hydralazine 25 Mg Tab PO 50 mg Q8HR JO-ANN Administration Potassium Chloride/Sodium Chloride 40 meq in 1,000 mls @ 125 mls/hr 08/04/21 13:00 Ns/Kcl 40meq IV DIRECT JO-ANN Labetalol HCl 10 mg 07/31/21 17:23 08/01/21 05:03 Labetalol 20 Mg/4 Ml Inj IV 10 mg Q4HR PRN Administration Hypertension Metoclopramide HCl 10 mg 07/30/21 14:16 Metoclopramide 10 Mg/2 Ml Inj IV Q6H PRN Nausea And Vomiting Metoprolol Tartrate 100 mg 07/31/21 22:00 08/04/21 09:36 Metoprolol Tartrate 100 Mg Tab PO 100 mg BID JO-ANN Administration Morphine Sulfate 2 mg 07/30/21 14:16 Morphine 2 Mg/1 Ml Inj IV Q4H PRN Pain, Moderate (4-6) Ondansetron HCl 4 mg 07/30/21 14:16 Ondansetron 4 Mg/2 Ml Inj IV Q8H PRN Nausea And Vomiting Oxycodone/Acetaminophen 1 tab 07/30/21 14:16 08/01/21 14:29 Oxycodone /Acetaminophen 5-325mg Tab PO 1 tab Q6H PRN Administration Pain, Moderate (4-6) Potassium Chloride 30 meq 08/04/21 12:00 Potassium Chloride 20 Meq/15 Ml Oral Liqd PO QDAY JO-ANN Sodium Chloride 10 ml 07/30/21 15:00 08/04/21 09:36 Sodium Chloride 0.9% 10 Ml Flush Syringe IV 10 ml BID JO-ANN Administration Sodium Chloride 10 ml 07/30/21 14:16 Sodium Chloride 0.9% 10 Ml Flush Syringe IV PRN PRN LINE FLUSH Tramadol HCl 50 mg 07/30/21 14:23 Tramadol 50 Mg Tab PO Q4H PRN Pain, Mild (1-3)
[2021-08-04] MEDS ORDERED: POTASSIUM CHLORIDE 20 MEQ PACKET PO SCH (14:00)
[2021-08-04] MEDS: CALCITONIN,SALMON,SYNTHETIC 400 UNIT/2 ML INJ MDV IM SCH ×2 (14:31→22:05)
--- NOTE | 2021-08-04 14:59 | Progress Note ---
Assessment and Plan --Severe hypokalemia; Replenished with IV and oral KCl Monitor potassium and magnesium level electrolytes Potassium and magnesium levels within normal limits today --Hypercalcemia; Closely monitor electrolytes Nephrology consulted Check PTH, consider calcitonin therapy -POLLO (acute kidney injury) Current Visit: Yes Status: Acute vasomotor nephropathy Creatinine trending down 1.6 -1.4 Continue IV hydration, monitor renal function Avoid nephrotoxin. Renal dosing of medications --STEMI (ST elevation myocardial infarction), ruled out Current Visit: Yes Status: Acute Patient presented with generalized weakness. She is diabetic and hypertensive. She has an EKG that has ST elevation concerning for AMI. Cardiology recommendations reviewed s/p emergency cardiac cath, normal coronaries findings do not represent a [place] and cardiology believes that this could represent Brugada syndrome. IV fluids and supportive care Cardiology following --Severe hypokalemia; Replenished with IV and oral KCl Monitor potassium and magnesium level electrolytes Potassium and magnesium levels within normal limits today --Hypercalcemia; Closely monitor electrolytes Nephrology consulted low PTH, initiated on calcitonin --Dehydration ; Acute kidney injury , hypercalcemia Continue IV hydration monitor electrolytes --Hypertension Current Visit: Yes Status: Chronic Continue antihypertensives and adjust medications --T2DM (type 2 diabetes mellitus) Current Visit: Yes Status: Chronic Coverage for now and hemoglobin A1c to be checked --History of ?rectal cancer: Patient is unable to give the details Try to get records from the other hospital --DVT prophylaxis Current Visit: Yes Status: Acute On anticoagulation GI prophylaxis --Advance care planning Current Visit: Yes Status: Acute Disease education conducted, care plan discussed, diagnosis discussed, prognosis discussed. Patient is full code. Patient acknowledges understanding and agreement with care plan. Patient's electrolyte abnormalities addressed, treatment plan reviewed +30 minutes. We will closely monitor the patient and adjust the management as needed Disposition; discharge when medically stable Daily clinical course: 08/02; hypercalcemia, nephrology evaluation noted, started on calcitonin. Closely monitor electrolytes, follow cardiology evaluation recommendations 08/03: Ca level remains elevated, cont calcitonin, follow clinically, bmp tomorrow 08/04: K 2.9 today , ca still low, cont to replete. nephrology following Subjective Date of service: 08/04/21 Interval history: Patient seen and examined denies any chest pain or SOB Ca level still elevated with low K family at the bedside Objective - Exam Narrative Exam: General appearance: Present: no acute distress, cachectic, other (Malnourished) - EENT Eyes: Present: PERRL, EOM intact - Neck Neck: Present: supple, normal ROM - Respiratory Respiratory effort: normal Respiratory: bilateral: diminished, negative: rales, rhonchi, wheezing - Cardiovascular Rhythm: regular Heart Sounds: Present: S1 & S2 - Extremities Extremities: no ischemia, No edema - Abdominal General gastrointestinal: soft, non-tender, non-distended, normal bowel sounds - Integumentary Integumentary: Present: clear, warm - Psychiatric Psychiatric: appropriate mood/affect, cooperative - Neurologic Neurologic: CNII-XII intact, moves all extremities - Constitutional Vitals: Vital Signs - 12hr 08/04/21 08/04/21 08/04/21 04:48 07:16 07:18 Temperature 98.5 F 98.8 F Pulse Rate 89 91 H Pulse Rate [ Right Radial] Respiratory 19 18 Rate Blood Pressure 148/94 120/72 O2 Sat by Pulse 100 100 Oximetry 08/04/21 08/04/21 08/04/21 08:00 10:00 10:46 Temperature Pulse Rate 90 74 Pulse Rate [ 90 Right Radial] Respiratory 18 18 Rate Blood Pressure 130/79 O2 Sat by Pulse 100 99 Oximetry - Labs CBC & Chem 7: 08/03/21 22:35 08/06/21 04:54 Labs: Abnormal lab results 08/03/21 08/03/21 08/03/21 Range/Units 04:00 16:26 20:39 WBC (4.5-11.0) K/mm3 Hgb (10.1-14.3) gm/dl Hct (30.3-42.9) % MCV (79-97) fl MCH (28-32) pg RDW (13.2-15.2) % Potassium (3.6-5.0) mmol/L Chloride (98-107) mmol/L Carbon Dioxide 21 L (22-30) mmol/L BUN 24 H (7-17) mg/dL Creatinine 1.5 H (0.6-1.2) mg/dL Glucose 160 H (65-100) mg/dL POC Glucose 127 H 106 H (70-105) mg/dL Calcium > 13.0 H* (8.4-10.2) mg/dL 08/03/21 08/04/21 08/04/21 Range/Units 22:35 04:57 07:37 WBC 20.0 H (4.5-11.0) K/mm3 Hgb 9.0 L (10.1-14.3) gm/dl Hct 28.1 L (30.3-42.9) % MCV 71 L (79-97) fl MCH 23 L (28-32) pg RDW 20.1 H (13.2-15.2) % Potassium 2.9 L* D (3.6-5.0) mmol/L Chloride 112.7 H (98-107) mmol/L Carbon Dioxide 21 L (22-30) mmol/L BUN 19 H (7-17) mg/dL Creatinine 1.3 H (0.6-1.2) mg/dL Glucose 115 H (65-100) mg/dL POC Glucose 116 H (70-105) mg/dL Calcium 12.0 H (8.4-10.2) mg/dL HEART Score - HEART Score Troponin: Troponin T 0.096 ng/mL (0.00-0.029) H 07/30/21 18:56
[2021-08-04] MEDS: NACL 0.9%/KCL 40 MEQ 40 MEQ/1,000 ML BAG IV SCH (18:03)
--- NOTE | 2021-08-04 20:07 | Progress Note ---
Assessment and Plan - Patient Problems (1) POLLO (acute kidney injury) Current Visit: Yes Status: Acute (2) Abnormal EKG Current Visit: Yes Status: Chronic Subjective Date of service: 08/04/21 Interval history: NO CV C/O....SORE FROM DIARRHEA Objective Vital Signs Temp Pulse Pulse Resp BP Pulse Ox 08/04/21 16:15 98.0 F 08/04/21 16:09 77 18 140/82 99 08/04/21 13:14 97.8 F 08/04/21 10:46 74 18 130/79 99 08/04/21 10:00 90 18 100 08/04/21 09:14 98 F 08/04/21 08:00 90 08/04/21 07:18 98.8 F 08/04/21 07:16 91 H 18 120/72 100 08/04/21 04:48 98.5 F 89 19 148/94 100 08/04/21 01:18 98.5 F 52 L 16 132/87 91 08/03/21 20:17 98.2 F 77 16 147/81 97 08/03/21 20:08 97 - Physical Examination General: No Apparent Distress HEENT: Positive: Normocephaly Neck: Positive: trachea midline Cardiac: Positive: Reg Rate and Rhythm Lungs: Positive: clear to auscultation Neuro: Positive: Grossly Intact Abdomen: Positive: Unremarkable Extremities: Present: normal - Labs and Meds CBC 08/03/21 Range/Units 22:35 WBC 20.0 H (4.5-11.0) K/mm3 RBC 3.97 (3.65-5.03) M/mm3 Hgb 9.0 L (10.1-14.3) gm/dl Hct 28.1 L (30.3-42.9) % Plt Count 397 (140-440) K/mm3 Comprehensive Metabolic Panel 08/04/21 Range/Units 04:57 Sodium 145 (137-145) mmol/L Potassium 2.9 L* D (3.6-5.0) mmol/L Chloride 112.7 H (98-107) mmol/L Carbon Dioxide 21 L (22-30) mmol/L BUN 19 H (7-17) mg/dL Creatinine 1.3 H (0.6-1.2) mg/dL Glucose 115 H (65-100) mg/dL Calcium 12.0 H (8.4-10.2) mg/dL
[2021-08-04] MEDS ORDERED: MAGNESIUM SULFATE 2 GM/50 ML BAG IV ONE (23:02)
[2021-08-05 02:35] LABS: Albumin 2.5 g/dL (3.8-4.8); Gamma Globulin 1.5 g/dL (0.8-1.7)
[2021-08-05] MEDS: hydrALAZINE 25 MG TAB PO SCH ×3 (06:28→23:15)
[2021-08-05] MEDS: NACL 0.9%/KCL 40 MEQ 40 MEQ/1,000 ML BAG IV SCH ×2 (07:19→17:28)
[2021-08-05] MEDS ORDERED: POTASSIUM CHLORIDE 20 MEQ PACKET PO SCH (10:00)
[2021-08-05] MEDS: HEPARIN 5,000 UNIT/1 ML VIAL SUB-Q SCH ×2 (10:15→22:00)
[2021-08-05] MEDS: amLODIPine 10 MG TAB PO SCH (10:15)
[2021-08-05] MEDS: FAMOTIDINE 10 MG TAB PO SCH ×2 (10:15→23:10)
[2021-08-05] MEDS: CALCITONIN,SALMON,SYNTHETIC 400 UNIT/2 ML INJ MDV IM SCH ×2 (10:15→23:11)
[2021-08-05] MEDS: METOPROLOL TARTRATE 100 MG TAB PO SCH ×2 (10:15→23:16)
[2021-08-05 10:36] LABS: Calcium 12.1 mg/dL (8.4-10.2)
--- NOTE | 2021-08-05 15:18 | Progress Note ---
Assessment and Plan --Severe hypokalemia; Replenished with IV and oral KCl Monitor potassium and magnesium level electrolytes Potassium and magnesium levels within normal limits today --Hypercalcemia; Closely monitor electrolytes Nephrology consulted Check PTH, consider calcitonin therapy -POLLO (acute kidney injury) vasomotor nephropathy Creatinine trending down 1.6 -1.4 Continue IV hydration, monitor renal function Avoid nephrotoxin. Renal dosing of medications --STEMI (ST elevation myocardial infarction), ruled out Patient presented with generalized weakness. She is diabetic and hypertensive. She has an EKG that has ST elevation concerning for AMI. Cardiology recommendations reviewed s/p emergency cardiac cath, normal coronaries findings do not represent a [place] and cardiology believes that this could represent Brugada syndrome. IV fluids and supportive care Cardiology following --Severe hypokalemia; Replenished with IV and oral KCl Monitor potassium and magnesium level electrolytes Potassium and magnesium levels within normal limits today --Hypercalcemia; Closely monitor electrolytes Nephrology consulted low PTH, initiated on calcitonin --Dehydration ; Acute kidney injury , hypercalcemia Continue IV hydration monitor electrolytes --Hypertension Continue antihypertensives and adjust medications --T2DM (type 2 diabetes mellitus) Coverage for now and hemoglobin A1c to be checked --History of ?rectal cancer: Patient is unable to give the details Try to get records from the other hospital --DVT prophylaxis On anticoagulation GI prophylaxis --Advance care planning Current Visit: Yes Status: Acute Disease education conducted, care plan discussed, diagnosis discussed, prognosis discussed. Patient is full code. Patient acknowledges understanding and agreement with ca re plan. Patient's electrolyte abnormalities addressed, treatment plan reviewed +30 minutes. We will closely monitor the patient and adjust the management as needed Disposition; discharge when medically stable Daily clinical course: 08/02; hypercalcemia, nephrology evaluation noted, started on calcitonin. Closely monitor electrolytes, follow cardiology evaluation recommendations 08/03: Ca level remains elevated, cont calcitonin, follow clinically, bmp tomorrow 08/04: K 2.9 today , ca still low, cont to replete. nephrology following 08/05: K improved, but ca remains elevated. With low albumin, corrected ca level could be even higher. d/c when clears by nephrology Subjective Date of service: 08/05/21 Interval history: Patient seen and examined denies any chest pain or SOB Ca level still elevated family at the bedside Objective - Exam Narrative Exam: General appearance: Present: no acute distress, cachectic, other (Malnourished) - EENT Eyes: Present: PERRL, EOM intact - Neck Neck: Present: supple, normal ROM - Respiratory Respiratory effort: normal Respiratory: bilateral: diminished, negative: rales, rhonchi, wheezing - Cardiovascular Rhythm: regular Heart Sounds: Present: S1 & S2 - Extremities Extremities: no ischemia, No edema - Abdominal General gastrointestinal: soft, non-tender, non-distended, normal bowel sounds - Integumentary Integumentary: Present: clear, warm - Psychiatric Psychiatric: appropriate mood/affect, cooperative - Neurologic Neurologic: CNII-XII intact, moves all extremities - Constitutional Vitals: Vital Signs - 12hr 08/05/21 08/05/21 08/05/21 04:14 07:48 08:15 Temperature 97.8 F 98.3 F Pulse Rate 69 Respiratory 20 16 Rate Blood Pressure 144/91 159/93 O2 Sat by Pulse 91 99 Oximetry 08/05/21 08/05/21 08/05/21 08:44 12:14 12:20 Temperature 98.4 F Pulse Rate 76 Respiratory 14 Rate Blood Pressure 137/83 O2 Sat by Pulse 98 99 Oximetry - Labs CBC & Chem 7: 08/03/21 22:35 08/06/21 04:54 Labs: Abnormal lab results 08/02/21 08/04/21 08/05/21 Range/Units 05:09 15:00 06:56 Chloride 108.8 H (98-107) mmol/L Carbon Dioxide 20 L (22-30) mmol/L Glucose 124 H (65-100) mg/dL POC Glucose (70-105) mg/dL Calcium 12.1 H* (8.4-10.2) mg/dL Magnesium 1.30 L (1.7-2.3) mg/dL Albumin 2.5 L (3.8-4.8) g/dL Aosae-4-[id number] 0.7 H (0.2-0.3) g/dL [id number]-[id number] 1.1 H (0.5-0.9) g/dL PEP Interpretation see below H 08/05/21 08/05/21 Range/Units 08:10 12:11 Chloride (98-107) mmol/L Carbon Dioxide (22-30) mmol/L Glucose (65-100) mg/dL POC Glucose 119 H 122 H (70-105) mg/dL Calcium (8.4-10.2) mg/dL Magnesium (1.7-2.3) mg/dL Albumin (3.8-4.8) g/dL [id number]-6-Eghetlkgj (0.2-0.3) g/dL Gpctl-0-Ltbkqobqd (0.5-0.9) g/dL PEP Interpretation HEART Score - HEART Score Troponin: Troponin T 0.096 ng/mL (0.00-0.029) H 07/30/21 18:56
--- NOTE | 2021-08-05 16:26 | Progress Note ---
Assessment and Plan Impression: * Hypercalcemia --PTH 11 --SPEP reviewed, no M spike --SIFE WNL * Acute kidney injury secondary to volume depletion related to hypercalcemia * Abnormal EKG with tombstone ST elevations and QT prolongation --Emergent LHC unremarkable (Jul 30) * Anemia * Hypokalemia Plan: * Continue IVF - continue NS w/ 40meq KCl, potassium stable this AM * Increase Calcitonin to 0.8 units/kg as Ca remains high at 12.1 * Obtain Mg - replete prn * Work up pending - vitamin D panel, RADHA pending * Dose medications for renal function * Avoid nephrotoxins * Patient is not cleared for discharge from a renal standpoint * Renal function has improved, no indication for renal replacement therapy Subjective Date of service: 08/05/21 Interval history: Resting in bed, no acute issues noted. Objective - Exam Narrative Exam: General appearance: well-developed, well-nourished EENT: ATNC Respiratory: Present: Clear to Ascultation Cardiology: regular, S1S2 Gastrointestinal: normal Integumentary: no rash Neurologic: alert and oriented x3 Psychiatric: cooperative - Vital Signs Vital signs: Vital Signs - 12hr 08/05/21 08/05/21 08/05/21 07:48 08:15 08:44 Temperature 98.3 F Pulse Rate 76 Respiratory 16 Rate Blood Pressure 159/93 O2 Sat by Pulse 99 98 Oximetry 08/05/21 08/05/21 08/05/21 12:14 12:20 15:55 Temperature 98.4 F 98.4 F Pulse Rate Respiratory 14 16 Rate Blood Pressure 137/83 139/80 O2 Sat by Pulse 99 Oximetry - Lab 08/03/21 22:35 08/05/21 06:56 Most recent lab results Calcium 12.1 mg/dL (8.4-10.2) H* 08/05/21 06:56 Magnesium 1.90 mg/dL (1.7-2.3) 08/05/21 06:56 Medications & Allergies - Medications Allergies/Adverse Reactions: Allergies No Known Allergies Allergy (Verified 08/03/21 12:53) Home Medications: Home Medications Medication Instructions Recorded Confirmed Last Taken Type Ferrous Sulfate [Iron 325 MG] 325 mg PO DAILY 07/30/21 08/03/21 Unknown History Hydralazine HCl 50 mg PO DAILY 07/30/21 08/03/21 Unknown History Insulin Glargine,Hum.rec.anlog 12 unit SQ QHS 07/30/21 08/03/21 Unknown History [Lantus Solostar] Insulin Lispro [Admelog] See Protocol SQ QACHS 07/30/21 08/03/21 Unknown History Metoprolol Tartrate [Lopressor] 100 mg PO BID 07/30/21 08/03/21 Unknown History amLODIPine 10 mg PO DAILY 07/30/21 08/03/21 Unknown History lisinopriL [Zestril TAB] 40 mg PO QDAY 07/30/21 08/03/21 Unknown History traMADoL [Ultram 50 MG tab] 50 mg PO Q6HR PRN 07/30/21 08/03/21 Unknown History Cyanocobalamin (Vitamin B-12) 2,500 mcg PO QDAY 08/03/21 08/03/21 Unknown History [Vitamin B12] Active Medications: Generic Name Dose Route Start Last Admin Trade Name Freq PRN Reason Stop Dose Admin Acetaminophen 650 mg 07/30/21 14:16 Acetaminophen 325 Mg Tab PO Q4H PRN Pain MILD(1-3)/Fever >100.5/BERNABE Hydrocodone Bitart/Acetaminophen 1 each 07/30/21 14:23 Hydrocodone/Acetaminophen 5-325 Mg Tab PO Q4H PRN Pain, Moderate (4-6) Alprazolam 0.25 mg 07/31/21 12:04 Alprazolam 0.25 Mg Tab PO Q8H PRN Anxiety Amlodipine Besylate 10 mg 08/01/21 10:00 08/05/21 10:15 Amlodipine 10 Mg Tab PO 10 mg DAILY JO-ANN Administration Calcitonin [place] 200 unit 08/02/21 10:00 08/05/21 10:15 Calcitonin,[place],Synthetic 400 Unit/2 Ml Inj Mdv IM 200 unit Q12HR JO-ANN Administration Dextrose 0 ml 07/31/21 17:02 07/31/21 17: Dextrose 10% *Hypoglycemia IV 75 ml PRN PRN Administration Hypoglycemia Protocol Famotidine 10 mg 08/01/21 10:00 08/05/21 10:15 Famotidine 10 Mg Tab PO 10 mg BID JO-ANN Administration Heparin Sodium (Porcine) 5,000 unit 07/30/21 14:30 08/05/21 10:15 Heparin 5,000 Unit/1 Ml Vial SUB-Q 5,000 unit Q12HR JO-ANN Administration Hydralazine HCl 50 mg 07/31/21 18:00 08/05/21 13:16 Hydralazine 25 Mg Tab PO 50 mg Q8HR JO-ANN Administration Potassium Chloride/Sodium Chloride 40 meq in 1,000 mls @ 125 mls/hr 08/04/21 14:00 08/05/21 07:19 Ns/Kcl 40meq IV 125 mls/hr DIRECT JO-ANN Administration Labetalol HCl 10 mg 07/31/21 17:23 08/01/21 05:03 Labetalol 20 Mg/4 Ml Inj IV 10 mg Q4HR PRN Administration Hypertension Metoclopramide HCl 10 mg 07/30/21 14:16 Metoclopramide 10 Mg/2 Ml Inj IV Q6H PRN Nausea And Vomiting Metoprolol Tartrate 100 mg 07/31/21 22:00 08/05/21 10:15 Metoprolol Tartrate 100 Mg Tab PO 100 mg BID JO-ANN Administration Morphine Sulfate 2 mg 07/30/21 14:16 Morphine 2 Mg/1 Ml Inj IV Q4H PRN Pain, Moderate (4-6) Ondansetron HCl 4 mg 07/30/21 14:16 Ondansetron 4 Mg/2 Ml Inj IV Q8H PRN Nausea And Vomiting Oxycodone/Acetaminophen 1 tab 07/30/21 14:16 08/01/21 14:29 Oxycodone /Acetaminophen 5-325mg Tab PO 1 tab Q6H PRN Administration Pain, Moderate (4-6) Sodium Chloride 10 ml 07/30/21 15:00 08/05/21 10:16 Sodium Chloride 0.9% 10 Ml Flush Syringe IV 10 ml BID JO-ANN Administration Sodium Chloride 10 ml 07/30/21 14:16 Sodium Chloride 0.9% 10 Ml Flush Syringe IV PRN PRN LINE FLUSH Tramadol HCl 50 mg 07/30/21 14:23 Tramadol 50 Mg Tab PO Q4H PRN Pain, Mild (1-3)
--- NOTE | 2021-08-05 23:17 | Progress Note ---
Assessment and Plan - Patient Problems (1) POLLO (acute kidney injury) Current Visit: Yes Status: Acute (2) Abnormal EKG Current Visit: Yes Status: Chronic Subjective Date of service: 08/05/21 Interval history: NO CV C/O....SORE FROM DIARRHEA Objective Vital Signs Temp Pulse Resp BP Pulse Ox 08/05/21 20:18 81 97 08/05/21 20:07 98.8 F 18 133/81 08/05/21 15:55 98.4 F 16 139/80 08/05/21 12:20 99 08/05/21 12:14 98.4 F 14 137/83 08/05/21 08:44 76 98 08/05/21 08:15 99 08/05/21 07:48 98.3 F 16 159/93 08/05/21 04:14 97.8 F 69 20 144/91 91 08/04/21 23:25 98.2 F 82 18 145/89 98 - Physical Examination General: No Apparent Distress HEENT: Positive: Normocephaly Neck: Positive: trachea midline Cardiac: Positive: Reg Rate and Rhythm Lungs: Positive: clear to auscultation Neuro: Positive: Grossly Intact Abdomen: Positive: Unremarkable Extremities: Present: normal - Labs and Meds Comprehensive Metabolic Panel 08/02/21 08/05/21 Range/Units 05:09 06:56 Sodium 137 D (137-145) mmol/L Potassium 3.9 D (3.6-5.0) mmol/L Chloride 108.8 H (98-107) mmol/L Carbon Dioxide 20 L (22-30) mmol/L BUN 16 (7-17) mg/dL Creatinine 1.2 (0.6-1.2) mg/dL Glucose 124 H (65-100) mg/dL Calcium 12.1 H* (8.4-10.2) mg/dL Albumin 2.5 L (3.8-4.8) g/dL
[2021-08-06] MEDS: hydrALAZINE 25 MG TAB PO SCH ×3 (05:51→21:17)
[2021-08-06 05:57] LABS: BUN/Creatinine Ratio 13; Blood Urea Nitrogen 13 mg/dL (7-17); Hemolysis Index 5
[2021-08-06 06:00] LABS: Calcium 12.5 mg/dL (8.4-10.2)
[2021-08-06] MEDS: NACL 0.9%/KCL 40 MEQ 40 MEQ/1,000 ML BAG IV SCH ×2 (06:30→22:20)
--- NOTE | 2021-08-06 09:07 | Progress Note ---
Assessment and Plan 1. Abnormal resting EKG 2. Hypertrophic cardiomyopathy with normal coronary arteries. 3. Acute on chronic kidney disease 4. Hypercalcemia 5. Hypokalemia 7. Persistent diarrhea 8. History of GI cancer unspecified Plan. Patient is currently stable cardiac posadas correction of electrolyte abnormalities as per PCP. As per nephrology and GI management Subjective Date of service: 08/06/21 Interval history: Complains of diarrhea no cardiac complains. Objective Vital Signs Temp Pulse Resp BP BP Pulse Ox 08/06/21 05:51 78 137/89 08/06/21 03:54 97.9 F 77 18 163/93 96 08/06/21 03:53 77 163/93 08/06/21 03:30 97.9 F 18 163/93 08/05/21 23:33 97.8 F 18 100 08/05/21 23:16 85 156/92 08/05/21 23:15 85 156/92 08/05/21 22:00 100 08/05/21 20:18 81 97 08/05/21 20:07 98.8 F 18 133/81 08/05/21 15:55 98.4 F 16 139/80 08/05/21 12:20 99 08/05/21 12:14 98.4 F 14 137/83 - Physical Examination General: No Apparent Distress HEENT: Positive: Normocephaly Neck: Positive: trachea midline Cardiac: Positive: Regular Rate, S1/S2, PMI, Laterally Displaced. Negative: S3, S4 Lungs: Positive: Normal Breath Sounds, No Wheeze, Rales, Rhonchi Neuro: Positive: Grossly Intact, No Lateralizing Findings Abdomen: Positive: Unremarkable Extremities: Present: normal. Absent: edema - Labs and Meds Comprehensive Metabolic Panel 08/05/21 08/06/21 Range/Units 06:56 04:54 Sodium 137 D 140 (137-145) mmol/L Potassium 3.9 D 4.4 (3.6-5.0) mmol/L Chloride 108.8 H 113.0 H (98-107) mmol/L Carbon Dioxide 20 L 17 L (22-30) mmol/L BUN 16 13 (7-17) mg/dL Creatinine 1.2 1.0 (0.6-1.2) mg/dL Glucose 124 H 150 H (65-100) mg/dL Calcium 12.1 H* 12.5 H* (8.4-10.2) mg/dL
--- NOTE | 2021-08-06 09:57 | Progress Note ---
Assessment and Plan Impression: * Hypercalcemia --PTH 11 --SPEP reviewed, no M spike --SIFE WNL * Acute kidney injury secondary to volume depletion related to hypercalcemia * Abnormal EKG with tombstone ST elevations and QT prolongation --Emergent LHC unremarkable (Jul 30) * Anemia * Hypokalemia Plan: * Continue IVF - continue NS w/ 40meq KCl, potassium stable this AM * Increased Calcitonin to 0.8 units/kg as Ca remains high at 12.5 * Replete Mg, P * Work up reviewed as above - vitamin D panel, RADHA still pending- unclear etiology of hypercalcemia so far * Dose medications for renal function * Avoid nephrotoxins * Patient is not cleared for discharge from a renal standpoint * Renal function has improved, no indication for renal replacement therapy * Will consider bisphosphonate therapy or Prolia if calcium continues to remain high Subjective Date of service: 08/06/21 Interval history: Resting in bed, no acute issues noted. No clinical changes noted per patient Objective - Exam Narrative Exam: General appearance: well-developed, well-nourished EENT: ATNC Respiratory: Present: Clear to Ascultation Cardiology: regular, S1S2 Gastrointestinal: normal Integumentary: no rash Neurologic: alert and oriented x3 Psychiatric: cooperative - Vital Signs Vital signs: Vital Signs - 12hr 08/05/21 08/05/21 08/05/21 22:00 23:15 23:16 Temperature Pulse Rate 85 85 Respiratory Rate Blood Pressure 156/92 156/92 Blood Pressure [Left] O2 Sat by Pulse 100 Oximetry 08/05/21 08/06/21 08/06/21 23:33 03:30 03:53 Temperature 97.8 F 97.9 F Pulse Rate 77 Respiratory 18 18 Rate Blood Pressure 163/93 163/93 Blood Pressure [Left] O2 Sat by Pulse 100 Oximetry 08/06/21 08/06/21 03:54 05:51 Temperature 97.9 F Pulse Rate 77 78 Respiratory 18 Rate Blood Pressure 137/89 Blood Pressure 163/93 [Left] O2 Sat by Pulse 96 Oximetry - Lab 08/03/21 22:35 08/06/21 04:54 Most recent lab results Calcium 12.5 mg/dL (8.4-10.2) H* 08/06/21 04:54 Phosphorus 1.20 mg/dL (2.5-4.5) L 08/06/21 04:54 Magnesium 1.60 mg/dL (1.7-2.3) L 08/06/21 04:54 Medications & Allergies - Medications Allergies/Adverse Reactions: Allergies No Known Allergies Allergy (Verified 08/03/21 12:53) Home Medications: Home Medications Medication Instructions Recorded Confirmed Last Taken Type Ferrous Sulfate [Iron 325 MG] 325 mg PO DAILY 07/30/21 08/03/21 Unknown History Hydralazine HCl 50 mg PO DAILY 07/30/21 08/03/21 Unknown History Insulin Glargine,Hum.rec.anlog 12 unit SQ QHS 07/30/21 08/03/21 Unknown History [Lantus Solostar] Insulin Lispro [Admelog] See Protocol SQ QACHS 07/30/21 08/03/21 Unknown History Metoprolol Tartrate [Lopressor] 100 mg PO BID 07/30/21 08/03/21 Unknown History amLODIPine 10 mg PO DAILY 07/30/21 08/03/21 Unknown History lisinopriL [Zestril TAB] 40 mg PO QDAY 07/30/21 08/03/21 Unknown History traMADoL [Ultram 50 MG tab] 50 mg PO Q6HR PRN 07/30/21 08/03/21 Unknown History Cyanocobalamin (Vitamin B-12) 2,500 mcg PO QDAY 08/03/21 08/03/21 Unknown History [Vitamin B12] Active Medications: Generic Name Dose Route Start Last Admin Trade Name Freq PRN Reason Stop Dose Admin Acetaminophen 650 mg 07/30/21 14:16 Acetaminophen 325 Mg Tab PO Q4H PRN Pain MILD(1-3)/Fever >100.5/BERNABE Hydrocodone Bitart/Acetaminophen 1 each 07/30/21 14:23 Hydrocodone/Acetaminophen 5-325 Mg Tab PO Q4H PRN Pain, Moderate (4-6) Alprazolam 0.25 mg 07/31/21 12:04 Alprazolam 0.25 Mg Tab PO Q8H PRN Anxiety Amlodipine Besylate 10 mg 08/01/21 10:00 08/05/21 10:15 Amlodipine 10 Mg Tab PO 10 mg DAILY JO-ANN Administration Calcitonin [place] 400 unit 08/05/21 16:31 08/05/21 23:11 Calcitonin,[place],Synthetic 400 Unit/2 Ml Inj Mdv IM 400 unit Q12HR JO-ANN Administration Dextrose 0 ml 07/31/21 17:02 07/31/21 17:22 Dextrose 10% *Hypoglycemia IV 75 ml PRN PRN Administration Hypoglycemia Protocol Famotidine 10 mg 08/01/21 10:00 08/05/21 23:10 Famotidine 10 Mg Tab PO 10 mg BID JO-ANN Administration Heparin Sodium (Porcine) 5,000 unit 07/30/21 14:30 08/05/21 22:00 Heparin 5,000 Unit/1 Ml Vial SUB-Q 5,000 unit Q12HR JO-ANN Administration Hydralazine HCl 50 mg 07/31/21 18:00 08/06/21 05:51 Hydralazine 25 Mg Tab PO 50 mg Q8HR JO-ANN Administration Potassium Chloride/Sodium Chloride 40 meq in 1,000 mls @ 125 mls/hr 08/04/21 14:00 08/06/21 06:30 Ns/Kcl 40meq IV 125 mls/hr DIRECT JO-ANN Administration Labetalol HCl 10 mg 07/31/21 17:23 08/06/21 03:53 Labetalol 20 Mg/4 Ml Inj IV 10 mg Q4HR PRN Administration Hypertension Metoclopramide HCl 10 mg 07/30/21 14:16 Metoclopramide 10 Mg/2 Ml Inj IV Q6H PRN Nausea And Vomiting Metoprolol Tartrate 100 mg 07/31/21 22:00 08/05/21 23:16 Metoprolol Tartrate 100 Mg Tab PO 100 mg BID JO-ANN Administration Morphine Sulfate 2 mg 07/30/21 14:16 Morphine 2 Mg/1 Ml Inj IV Q4H PRN Pain, Moderate (4-6) Ondansetron HCl 4 mg 07/30/21 14:16 Ondansetron 4 Mg/2 Ml Inj IV Q8H PRN Nausea And Vomiting Oxycodone/Acetaminophen 1 tab 07/30/21 14:16 08/01/21 14:29 Oxycodone /Acetaminophen 5-325mg Tab PO 1 tab Q6H PRN Administration Pain, Moderate (4-6) Sodium Chloride 10 ml 07/30/21 15:00 08/05/21 23:10 Sodium Chloride 0.9% 10 Ml Flush Syringe IV Not Given BID JO-ANN Sodium Chloride 10 ml 07/30/21 14:16 Sodium Chloride 0.9% 10 Ml Flush Syringe IV PRN PRN LINE FLUSH Tramadol HCl 50 mg 07/30/21 14:23 Tramadol 50 Mg Tab PO Q4H PRN Pain, Mild (1-3)
[2021-08-06] MEDS: HEPARIN 5,000 UNIT/1 ML VIAL SUB-Q SCH ×2 (10:16→21:19)
[2021-08-06] MEDS: amLODIPine 10 MG TAB PO SCH (10:16)
[2021-08-06] MEDS: METOPROLOL TARTRATE 100 MG TAB PO SCH ×2 (10:16→21:18)
[2021-08-06] MEDS: FAMOTIDINE 10 MG TAB PO SCH ×2 (10:16→21:17)
[2021-08-06] MEDS: CALCITONIN,SALMON,SYNTHETIC 400 UNIT/2 ML INJ MDV IM SCH ×2 (10:17→21:25)
[2021-08-06] MEDS ORDERED: POTASSIUM PHOSPHATE 30 MMOL in SODIUM CHLORIDE 0.9% 500 ML 500 ML IV ONE (12:30)
[2021-08-07] MEDS: hydrALAZINE 25 MG TAB PO SCH ×3 (05:14→21:23)
[2021-08-07 06:02] LABS: BUN/Creatinine Ratio 13; Blood Urea Nitrogen 14 mg/dL (7-17); Calcium 11.6 mg/dL (8.4-10.2); Hemolysis Index 4
--- NOTE | 2021-08-07 09:41 | Progress Note ---
Assessment and Plan 1. Abnormal resting EKG 2. Hypertrophic cardiomyopathy with normal coronary arteries. 3. Acute on chronic kidney disease 4. Hypercalcemia 5. Hypokalemia 7. Persistent diarrhea 8. History of GI cancer unspecified Plan. Patient is currently stable cardiac posadas correction of electrolyte abnormalities as per PCP. As per nephrology and GI management Rule out infiltrative cardiomyopathy electively Subjective Date of service: 08/07/21 Interval history: No cardiac symptoms. Objective Vital Signs Temp Pulse Resp BP Pulse Ox 08/07/21 07:32 98.3 F 84 16 149/92 97 08/07/21 05:14 77 148/93 08/07/21 05:12 98.1 F 73 18 148/93 94 08/07/21 02:34 99 08/07/21 01:38 97.9 F 81 20 149/95 99 08/06/21 21:18 74 158/93 08/06/21 21:17 74 158/93 08/06/21 19:20 98.3 F 74 16 158/93 100 08/06/21 11:06 98.2 F 47 L 16 161/91 100 08/06/21 10:00 100 - Physical Examination General: No Apparent Distress HEENT: Positive: Normocephaly Neck: Positive: trachea midline Cardiac: Positive: Regular Rate, S1/S2, S4, PMI, Laterally Displaced. Negative: S3 Lungs: Positive: clear to auscultation, No Wheeze, Rales, Rhonchi Neuro: Positive: Grossly Intact, No Lateralizing Findings Abdomen: Positive: Unremarkable Extremities: Present: normal. Absent: edema - Labs and Meds Comprehensive Metabolic Panel 08/07/21 Range/Units 05:10 Sodium 139 (137-145) mmol/L Potassium 4.7 (3.6-5.0) mmol/L Chloride 113.0 H (98-107) mmol/L Carbon Dioxide 16 L (22-30) mmol/L BUN 14 (7-17) mg/dL Creatinine 1.1 (0.6-1.2) mg/dL Glucose 92 (65-100) mg/dL Calcium 11.6 H (8.4-10.2) mg/dL
[2021-08-07] MEDS: FAMOTIDINE 10 MG TAB PO SCH ×2 (10:09→21:21)
[2021-08-07] MEDS: HEPARIN 5,000 UNIT/1 ML VIAL SUB-Q SCH ×2 (10:09→21:23)
[2021-08-07] MEDS: METOPROLOL TARTRATE 100 MG TAB PO SCH ×2 (10:09→21:21)
[2021-08-07] MEDS: amLODIPine 10 MG TAB PO SCH (10:09)
--- NOTE | 2021-08-07 11:33 | Progress Note ---
Assessment and Plan --Severe hypokalemia; Replenished with IV and oral KCl Monitor potassium and magnesium level electrolytes Potassium and magnesium levels within normal limits today --Hypercalcemia; Closely monitor electrolytes Nephrology consulted Check PTH, consider calcitonin therapy -POLLO (acute kidney injury) vasomotor nephropathy Creatinine trending down 1.6 -1.4 Continue IV hydration, monitor renal function Avoid nephrotoxin. Renal dosing of medications --STEMI (ST elevation myocardial infarction), ruled out Patient presented with generalized weakness. She is diabetic and hypertensive. She has an EKG that has ST elevation concerning for AMI. Cardiology recommendations reviewed s/p emergency cardiac cath, normal coronaries findings do not represent a [place] and cardiology believes that this could represent Brugada syndrome. IV fluids and supportive care Cardiology following --Severe hypokalemia; Replenished with IV and oral KCl Monitor potassium and magnesium level electrolytes Potassium and magnesium levels within normal limits today --Hypomagnesemia and hypophosphatemia, continue to replete --Hypercalcemia; Closely monitor electrolytes Nephrology consulted low PTH, initiated on calcitonin --Dehydration ; Acute kidney injury , hypercalcemia Continue IV hydration monitor electrolytes --Hypertension Continue antihypertensives and adjust medications --T2DM (type 2 diabetes mellitus) Coverage for now and hemoglobin A1c to be checked --History of ?rectal cancer: Patient is unable to give the details Try to get records from the other hospital --DVT prophylaxis On anticoagulation GI prophylaxis --Advance care planning Current Visit: Yes Status: Acute Disease education conducted, care plan discussed, diagnosis discussed, prognosis discussed. Patient is full code. Patient acknowledges understanding and agreement with care plan. Patient's electrolyte abnormalities addressed, treatment plan reviewed +30 minutes. We will closely monitor the patient and adjust the management as needed Disposition; discharge when medically stable Daily clinical course: 08/02; hypercalcemia, nephrology evaluation noted, started on calcitonin. Closely monitor electrolytes, follow cardiology evaluation recommendations 08/03: Ca level remains elevated, cont calcitonin, follow clinically, bmp tomorrow 08/04: K 2.9 today , ca still low, cont to replete. nephrology following 08/05: K improved, but ca remains elevated. With low albumin, corrected ca level could be even higher. d/c when clears by nephrology 08/06: K stable, Ca 12,5, with low Mg and low phos. cont to replete electrolyte. d/c when clears by renal. Subjective Date of service: 08/06/21 Interval history: Patient seen and examined denies any chest pain or SOB Ca level still elevated family at the bedside Objective - Exam Narrative Exam: General appearance: Present: no acute distress, cachectic, other (Malnourished) - EENT Eyes: Present: PERRL, EOM intact - Neck Neck: Present: supple, normal ROM - Respiratory Respiratory effort: normal Respiratory: bilateral: diminished, negative: rales, rhonchi, wheezing - Cardiovascular Rhythm: regular Heart Sounds: Present: S1 & S2 - Extremities Extremities: no ischemia, No edema - Abdominal General gastrointestinal: soft, non-tender, non-distended, normal bowel sounds - Integumentary Integumentary: Present: clear, warm - Psychiatric Psychiatric: appropriate mood/affect, cooperative - Neurologic Neurologic: CNII-XII intact, moves all extremities - Constitutional Vitals: Vital Signs - 12hr 08/07/21 08/07/21 08/07/21 01:38 02:34 05:12 Temperature 97.9 F 98.1 F Pulse Rate 81 73 Respiratory 20 18 Rate Blood Pressure 149/95 148/93 O2 Sat by Pulse 99 99 94 Oximetry 08/07/21 08/07/21 08/07/21 05:14 07:32 10:00 Temperature 98.3 F Pulse Rate 77 84 Respiratory 16 Rate Blood Pressure 148/93 149/92 O2 Sat by Pulse 97 99 Oximetry - Labs CBC & Chem 7: 08/03/21 22:35 08/07/21 05:10 Labs: Abnormal lab results 08/06/21 08/06/21 08/07/21 Range/Units 11:53 21:26 05:10 Chloride 113.0 H (98-107) mmol/L Carbon Dioxide 16 L (22-30) mmol/L POC Glucose 125 H 110 H (70-105) mg/dL Calcium 11.6 H (8.4-10.2) mg/dL Phosphorus 2.40 L D (2.5-4.5) mg/dL HEART Score - HEART Score Troponin: Troponin T 0.096 ng/mL (0.00-0.029) H 07/30/21 18:56
[2021-08-07] MEDS: CALCITONIN,SALMON,SYNTHETIC 400 UNIT/2 ML INJ MDV IM SCH ×2 (11:55→21:36)
[2021-08-07] MEDS ORDERED: MAGNESIUM SULFATE 3 GM in SODIUM CHLORIDE 0.9% 100 ML IV ONE (14:00)
[2021-08-07] MEDS ORDERED: POTASSIUM PHOSPHATE 30 MMOL in SODIUM CHLORIDE 0.9% 500 ML 500 ML IV ONE (14:00)
[2021-08-07] MEDS: MEGESTROL 400 MG/10 ML ORAL LIQD PO SCH (14:15)
--- NOTE | 2021-08-07 15:32 | Progress Note ---
Assessment and Plan Impression: * Hypercalcemia --PTH 11 --SPEP reviewed, no M spike --SIFE WNL --RADHA WNL * Acute kidney injury secondary to volume depletion related to hypercalcemia * Abnormal EKG with tombstone ST elevations and QT prolongation --Emergent [facility] unremarkable (Jul 30) * Anemia * Hypokalemia Plan: * Continue IVF - continue NS w/ 40meq KCl, potassium stable this AM * Encourage po hydration and nutrition * Increased Calcitonin to 0.8 units/kg as Ca better at 11.6 * Replete Mg, P prn * Start NaHCO3 for acidosis, may also help with hyperclacemia * Work up reviewed as above - vitamin D panel still pending- unclear etiology of hypercalcemia so far- may be related to dehydration * Dose medications for renal function * Avoid nephrotoxins * Patient is not cleared for discharge from a renal standpoint * Renal function has improved, no indication for renal replacement therapy * Will consider bisphosphonate therapy or Prolia if calcium continues to remain high * If calcium continues to improve, can discharge tomorrow and will arrange close outpatient followup, will need age appropriate cancer screening if not done Subjective Date of service: 08/07/21 Interval history: Resting in bed, no acute issues noted. No clinical changes noted per patient, feeling well this AM Objective - Exam Narrative Exam: General appearance: well-developed, well-nourished EENT: ATNC Respiratory: Present: Clear to Ascultation Cardiology: regular, S1S2 Gastrointestinal: normal Integumentary: no rash Neurologic: alert and oriented x3 Psychiatric: cooperative - Vital Signs Vital signs: Vital Signs - 12hr 08/07/21 08/07/21 08/07/21 05:12 05:14 07:32 Temperature 98.1 F 98.3 F Pulse Rate 73 77 84 Respiratory 18 16 Rate Blood Pressure 148/93 148/93 149/92 O2 Sat by Pulse 94 97 Oximetry 08/07/21 08/07/21 10:00 12:14 Temperature 98.2 F Pulse Rate 75 Respiratory 16 Rate Blood Pressure 120/75 O2 Sat by Pulse 99 99 Oximetry - Lab 08/03/21 22:35 08/07/21 05:10 Most recent lab results Calcium 11.6 mg/dL (8.4-10.2) H 08/07/21 05:10 Phosphorus 2.40 mg/dL (2.5-4.5) L D 08/07/21 05:10 Magnesium 1.50 mg/dL (1.7-2.3) L 08/07/21 05:10 Medications & Allergies - Medications Allergies/Adverse Reactions: Allergies No Known Allergies Allergy (Verified 08/03/21 12:53) Home Medications: Home Medications Medication Instructions Recorded Confirmed Last Taken Type Ferrous Sulfate [Iron 325 MG] 325 mg PO DAILY 07/30/21 08/03/21 Unknown History Hydralazine HCl 50 mg PO DAILY 07/30/21 08/03/21 Unknown History Insulin Glargine,Hum.rec.anlog 12 unit SQ QHS 07/30/21 08/03/21 Unknown History [Lantus Solostar] Insulin Lispro [Admelog] See Protocol SQ QACHS 07/30/21 08/03/21 Unknown History Metoprolol Tartrate [Lopressor] 100 mg PO BID 07/30/21 08/03/21 Unknown History amLODIPine 10 mg PO DAILY 07/30/21 08/03/21 Unknown History lisinopriL [Zestril TAB] 40 mg PO QDAY 07/30/21 08/03/21 Unknown History traMADoL [Ultram 50 MG tab] 50 mg PO Q6HR PRN 07/30/21 08/03/21 Unknown History Cyanocobalamin (Vitamin B-12) 2,500 mcg PO QDAY 08/03/21 08/03/21 Unknown History [Vitamin B12] Active Medications: Generic Name Dose Route Start Last Admin Trade Name Freq PRN Reason Stop Dose Admin Acetaminophen 650 mg 07/30/21 14:16 Acetaminophen 325 Mg Tab PO Q4H PRN Pain MILD(1-3)/Fever >100.5/BERNABE Hydrocodone Bitart/Acetaminophen 1 each 07/30/21 14:23 Hydrocodone/Acetaminophen 5-325 Mg Tab PO Q4H PRN Pain, Moderate (4-6) Alprazolam 0.25 mg 07/31/21 12:04 Alprazolam 0.25 Mg Tab PO Q8H PRN Anxiety Amlodipine Besylate 10 mg 08/01/21 10:00 08/07/21 10:09 Amlodipine 10 Mg Tab PO 10 mg DAILY JO-ANN Administration Calcitonin [place] 400 unit 08/05/21 16:31 08/06/21 21:25 Calcitonin,[place],Synthetic 400 Unit/2 Ml Inj Mdv IM 400 unit Q12HR JO-ANN Administration Dextrose 0 ml 07/31/21 17:02 07/31/21 17:22 Dextrose 10% *Hypoglycemia IV 75 ml PRN PRN Administration Hypoglycemia Protocol Famotidine 10 mg 08/01/21 10:00 08/07/21 10:09 Famotidine 10 Mg Tab PO 10 mg BID JO-ANN Administration Heparin Sodium (Porcine) 5,000 unit 07/30/21 14:30 08/07/21 10:09 Heparin 5,000 Unit/1 Ml Vial SUB-Q 5,000 unit Q12HR JO-ANN Administration Hydralazine HCl 50 mg 07/31/21 18:00 08/07/21 14:15 Hydralazine 25 Mg Tab PO 50 mg Q8HR JO-ANN Administration Potassium Chloride/Sodium Chloride 40 meq in 1,000 mls @ 125 mls/hr 08/04/21 14:00 08/06/21 22:20 Ns/Kcl 40meq IV 125 mls/hr DIRECT JO-ANN Administration Potassium Phosphate 30 mmol/ 510 mls @ 85 mls/hr 08/07/21 14:00 08/07/21 14:16 Sodium Chloride IV 08/07/21 19:59 85 mls/hr ONCE ONE Administration Magnesium Sulfate 3 gm/ Sodium 106 mls @ 35.333 mls/hr 08/07/21 14:00 08/07/21 14:15 Chloride IV 08/07/21 16:59 35.333 mls/hr ONCE ONE Administration Labetalol HCl 10 mg 07/31/21 17:23 08/06/21 03:53 Labetalol 20 Mg/4 Ml Inj IV 10 mg Q4HR PRN Administration Hypertension Megestrol Acetate 400 mg 08/07/21 14:00 08/07/21 14:15 Megestrol 400 Mg/10 Ml Oral Liqd PO 400 mg QDAY JO-ANN Administration Metoclopramide HCl 10 mg 07/30/21 14:16 Metoclopramide 10 Mg/2 Ml Inj IV Q6H PRN Nausea And Vomiting Metoprolol Tartrate 100 mg 07/31/21 22:00 08/07/21 10:09 Metoprolol Tartrate 100 Mg Tab PO 100 mg BID JO-ANN Administration Morphine Sulfate 2 mg 07/30/21 14:16 Morphine 2 Mg/1 Ml Inj IV Q4H PRN Pain, Moderate (4-6) Ondansetron HCl 4 mg 07/30/21 14:16 Ondansetron 4 Mg/2 Ml Inj IV Q8H PRN Nausea And Vomiting Oxycodone/Acetaminophen 1 tab 07/30/21 14:16 08/01/21 14:29 Oxycodone /Acetaminophen 5-325mg Tab PO 1 tab Q6H PRN Administration Pain, Moderate (4-6) Sodium Bicarbonate 650 mg 08/07/21 20:00 Sodium Bicarbonate 650 Mg Tab PO TID JO-ANN Sodium Chloride 10 ml 07/30/21 15:00 08/07/21 10:10 Sodium Chloride 0.9% 10 Ml Flush Syringe IV 10 ml BID JO-ANN Administration Sodium Chloride 10 ml 07/30/21 14:16 Sodium Chloride 0.9% 10 Ml Flush Syringe IV PRN PRN LINE FLUSH Tramadol HCl 50 mg 07/30/21 14:23 Tramadol 50 Mg Tab PO Q4H PRN Pain, Mild (1-3)
[2021-08-07] MEDS: SODIUM BICARBONATE 650 MG TAB PO SCH (21:21)
[2021-08-08 03:59] LABS: Vitamin D, 25-OH, D2 SEE SCANNED RESULT
[2021-08-08] MEDS: hydrALAZINE 25 MG TAB PO SCH (05:54)
[2021-08-08] MEDS: NACL 0.9%/KCL 40 MEQ 40 MEQ/1,000 ML BAG IV SCH (05:55)
[2021-08-08 06:04] LABS: Calcium 10.9 mg/dL (8.4-10.2)
--- NOTE | 2021-08-08 08:18 | Progress Note ---
Assessment and Plan --Severe hypokalemia; Replenished with IV and oral KCl Monitor potassium and magnesium level electrolytes Potassium and magnesium levels within normal limits today --Hypercalcemia; Closely monitor electrolytes Nephrology consulted Check PTH, consider calcitonin therapy -POLLO (acute kidney injury) vasomotor nephropathy Creatinine trending down 1.6 -1.4 Continue IV hydration, monitor renal function Avoid nephrotoxin. Renal dosing of medications --STEMI (ST elevation myocardial infarction), ruled out Patient presented with generalized weakness. She is diabetic and hypertensive. She has an EKG that has ST elevation concerning for AMI. Cardiology recommendations reviewed s/p emergency cardiac cath, normal coronaries findings do not represent a MS and cardiology believes that this could represent Brugada syndrome. IV fluids and supportive care Cardiology following --Severe hypokalemia; Replenished with IV and oral KCl Monitor potassium and magnesium level electrolytes Potassium and magnesium levels within normal limits today --Hypomagnesemia and hypophosphatemia, continue to replete --Hypercalcemia; Closely monitor electrolytes Nephrology consulted low PTH, initiated on calcitonin --Dehydration ; Acute kidney injury , hypercalcemia Continue IV hydration monitor electrolytes --Hypertension Continue antihypertensives and adjust medications --T2DM (type 2 diabetes mellitus) Coverage for now and hemoglobin A1c to be checked --History of ?rectal cancer: Patient is unable to give the details Try to get records from the other hospital --DVT prophylaxis On anticoagulation GI prophylaxis --Advance care planning Current Visit: Yes Status: Acute Disease education conducted, care plan discussed, diagnosis discussed, prognosis discussed. Patient is full code. Patient acknowledges understanding and agreement with care plan. Patient's electrolyte abnormalities addressed, treatment plan reviewed +30 minutes. We will closely monitor the patient and adjust the management as needed Disposition; discharge when medically stable Daily clinical course: 08/02; hypercalcemia, nephrology evaluation noted, started on calcitonin. Closely monitor electrolytes, follow cardiology evaluation recommendations 08/03: Ca level remains elevated, cont calcitonin, follow clinically, bmp tomorrow 08/04: K 2.9 today , ca still low, cont to replete. nephrology following 08/05: K improved, but ca remains elevated. With low albumin, corrected ca level could be even higher. d/c when clears by nephrology 08/06: K stable, Ca 12,5, with low Mg and low phos. cont to replete electrolyte. d/c when clears by renal. 08/07: ca 11.6, still Mg and phos level low, cont to replete, follow BMP Subjective Date of service: 08/07/21 Interval history: Patient seen and examined denies any chest pain or SOB Ca level still elevated with low Mg and phos BP stable Objective - Exam Narrative Exam: General appearance: Present: no acute distress, cachectic, other (Malnourished) - EENT Eyes: Present: PERRL, EOM intact - Neck Neck: Present: supple, normal ROM - Respiratory Respiratory effort: normal Respiratory: bilateral: diminished, negative: rales, rhonchi, wheezing - Cardiovascular Rhythm: regular Heart Sounds: Present: S1 & S2 - Extremities Extremities: no ischemia, No edema - Abdominal General gastrointestinal: soft, non-tender, non-distended, normal bowel sounds - Integumentary Integumentary: Present: clear, warm - Psychiatric Psychiatric: appropriate mood/affect, cooperative - Neurologic Neurologic: CNII-XII intact, moves all extremities - Constitutional Vitals: Vital Signs - 12hr 08/07/21 08/07/21 08/07/21 20:37 21:21 21:23 Temperature 97.9 F Pulse Rate 81 82 82 Respiratory 16 Rate Blood Pressure 160/89 160/89 160/89 O2 Sat by Pulse 94 Oximetry 08/07/21 08/08/21 08/08/21 23:27 01:41 03:37 Temperature 98.1 F 98.2 F Pulse Rate 88 80 Respiratory 16 16 Rate Blood Pressure 129/71 135/82 O2 Sat by Pulse 98 98 98 Oximetry 08/08/21 05:54 Temperature Pulse Rate Respiratory Rate Blood Pressure 135/82 O2 Sat by Pulse Oximetry - Labs CBC & Chem 7: 08/03/21 22:35 08/08/21 05:23 Labs: Abnormal lab results 08/04/21 08/07/21 08/07/21 Range/Units 04:57 05:10 12:15 Chloride (98-107) mmol/L Carbon Dioxide (22-30) mmol/L Creatinine (0.6-1.2) mg/dL Glucose (65-100) mg/dL POC Glucose 199 H (70-105) mg/dL Calcium (8.4-10.2) mg/dL Ionized Calcium 7.3 H* (4.8-5.6) mg/dL Magnesium 1.50 L (1.7-2.3) mg/dL 08/07/21 08/07/21 08/08/21 Range/Units 17:35 21:12 05:23 Chloride 110.6 H (98-107) mmol/L Carbon Dioxide 17 L (22-30) mmol/L Creatinine 1.3 H (0.6-1.2) mg/dL Glucose 144 H (65-100) mg/dL POC Glucose 132 H 129 H (70-105) mg/dL Calcium 10.9 H (8.4-10.2) mg/dL Ionized Calcium (4.8-5.6) mg/dL Magnesium (1.7-2.3) mg/dL HEART Score - HEART Score Troponin: Troponin T 0.096 ng/mL (0.00-0.029) H 07/30/21 18:56
--- NOTE | 2021-08-08 08:36 | Discharge Summary ---
Providers - Providers Date of Admission: 07/30/21 14:16 Date of discharge: 08/08/21 Attending physician: CHELA SCHULER 07/30/21 14:16 Consult to Physician [CONS] Routine Comment: Consulting Provider: NAYE HENRY Physician Instructions: Reason For Exam: ACS 07/30/21 14:23 Consult to Cardiac Rehabilitation [CONS] Routine Reason For Exam: Cardiac Rehab Evaluation 08/01/21 20:14 Consult to Physician [CONS] Routine Comment: Consulting Provider: PIEDAD PEDRAZA Physician Instructions: Reason For Exam: POLLO, hypercalcemia 08/03/21 08:21 Speech Therapy Evaluation and Treat [CONS] Routine Reason For Exam: reported swallowing inconsistency 08/07/21 12:48 Midline [Consult to PICC Line RN] [CONS] Stat Reason For Exam: IV assess Type Line:: Midline Primary care physician: LILIA GILLILAND Hospitalization Condition: Stable Disposition: 01 HOME / SELF CARE / HOMELESS Final Discharge Diagnosis (Prints w/discharge instructions): --Severe hypokalemia, hypomagnesemia and hypophosphatemia. --Hypercalcemia. --Abnormal EKG with ST elevations and QT prolongation. --Anemia of chronic disease. --History of rectal cancer. --POLLO likely due to vasomotor nephropathy secondary to volume depletion related to hypercalcemia. --Dehydration. --Severe protein calorie malnutrition Time spent for discharge: 34 minutes Core Measure Documentation - Palliative Care Palliative Care/ Comfort Measures: Not Applicable - Core Measures Any of the following diagnoses?: none Exam - Physical Exam Narrative exam: General appearance: Present: no acute distress, cachectic, other (Malnourished) - EENT Eyes: Present: PERRL, EOM intact - Neck Neck: Present: supple, normal ROM - Respiratory Respiratory effort: normal Respiratory: bilateral: diminished, negative: rales, rhonchi, wheezing - Cardiovascular Rhythm: regular Heart Sounds: Present: S1 & S2 - Extremities Extremities: no ischemia, No edema - Abdominal General gastrointestinal: soft, non-tender, non-distended, normal bowel sounds - Integumentary Integumentary: Present: clear, warm - Psychiatric Psychiatric: appropriate mood/affect, cooperative - Neurologic Neurologic: CNII-XII intact, moves all extremities - Constitutional Vitals: Temp Pulse Resp BP Pulse Ox 98.2 F 80 16 135/82 98 08/08/21 03:37 08/08/21 03:37 08/08/21 03:37 08/08/21 05:54 08/08/21 03:37 Plan Activity: advance as tolerated Weight Bearing Status: Weight Bear as Tolerated Diet: regular Follow up with: LILIA GILLILAND MD [Primary Care Provider] - 7 Days PIEDAD PEDRAZA MD [Staff Physician] - 7 Days Prescriptions: megestroL [Megestrol] 400 mg PO QDAY 30 Days calcitrioL [Rocaltrol] 0.25 mcg PO DAILY #14 cap Sodium Bicarbonate 650 mg PO TID #90 tablet
[2021-08-08] MEDS: HYDROcodone/ACETAMINOPHEN 5-325 MG TAB PO PRN ×2 (08:56→08:57)
[2021-08-08] MEDS: HEPARIN 5,000 UNIT/1 ML VIAL SUB-Q SCH (08:59)
[2021-08-08] MEDS: SODIUM BICARBONATE 650 MG TAB PO SCH (09:00)
[2021-08-08] MEDS: amLODIPine 10 MG TAB PO SCH (09:00)
[2021-08-08] MEDS: METOPROLOL TARTRATE 100 MG TAB PO SCH (09:01)
[2021-08-08] MEDS: FAMOTIDINE 10 MG TAB PO SCH (09:01)
[2021-08-08] MEDS: MEGESTROL 400 MG/10 ML ORAL LIQD PO SCH (09:02)
--- NOTE | 2021-08-08 10:50 | Progress Note ---
Assessment and Plan - Patient Problems (1) Abnormal EKG Current Visit: Yes Status: Chronic Plan to address problem: Presented with atypical symptoms, and ECG was abnormal with nonspecific ST elevation, which prompted an immediate cardiac catheterization. There was no significant coronary artery disease, essentially angiographically near-normal coronary arteries. Subsequent echocardiogram shows moderately severe, concentric left ventricle hypertrophy, with well-preserved left ventricular systolic function with ejection fraction 60%. Patient admits to history of chronic hypertension but uncertain about her prepresentation medical management. (2) Uncontrolled hypertension Current Visit: Yes Status: Acute Plan to address problem: Optimize antihypertensive medical management as recommended. Subjective Date of service: 08/08/21 Principal diagnosis: Abnormal ECG Interval history: Patient is comfortable, no acute distress, no new cardiac complaints. It will be recalled that she presented here with atypical symptoms, and ECG was abnormal with nonspecific ST elevation, which prompted an immediate cardiac catheterization. There was no significant coronary artery disease, essentially angiographically near-normal coronary arteries. Subsequent echocardiogram shows moderately severe, concentric left ventricle hypertrophy, with well-preserved left ventricular systolic function with ejection fraction 60%. Patient admits to history of chronic hypertension but uncertain about her prepresentation medical management. Objective Vital Signs Temp Pulse Resp BP Pulse Ox 08/08/21 09:01 104 H 08/08/21 09:00 104 H 08/08/21 08:57 16 08/08/21 05:54 135/82 08/08/21 03:37 98.2 F 80 16 135/82 98 08/08/21 01:41 98 08/07/21 23:27 98.1 F 88 16 129/71 98 08/07/21 21:23 82 160/89 08/07/21 21:21 82 160/89 08/07/21 20:37 97.9 F 81 16 160/89 94 08/07/21 12:14 98.2 F 75 16 120/75 99 - Physical Examination General: No Apparent Distress HEENT: Positive: PERRL Neck: Positive: trachea midline Cardiac: Positive: Reg Rate and Rhythm Lungs: Positive: Decreased Breath Sounds Neuro: Positive: Grossly Intact, No Lateralizing Findings Abdomen: Positive: Unremarkable Skin: Positive: Clear Extremities: Absent: edema - Labs and Meds Comprehensive Metabolic Panel 08/08/21 Range/Units 05:23 Sodium 137 (137-145) mmol/L Potassium 4.8 (3.6-5.0) mmol/L Chloride 110.6 H (98-107) mmol/L Carbon Dioxide 17 L (22-30) mmol/L BUN 16 (7-17) mg/dL Creatinine 1.3 H (0.6-1.2) mg/dL Glucose 144 H (65-100) mg/dL Calcium 10.9 H (8.4-10.2) mg/dL
[2021-08-08] MEDS ORDERED: VALSARTAN 40 MG TAB PO SCH (11:00)
[2021-08-08] MEDS ORDERED: NIFEdipine XL 60 MG TAB PO SCH (11:00)
[2021-08-08 13:22] VITALS: BP 123/78
--- NOTE | 2021-08-08 16:09 | Progress Note ---
Assessment and Plan Impression: * Hypercalcemia --PTH 11 --SPEP reviewed, no M spike --SIFE WNL --RADHA WNL * Acute kidney injury secondary to volume depletion related to hypercalcemia * Abnormal EKG with tombstone ST elevations and QT prolongation --Emergent [facility] unremarkable (Jul 30) * Anemia * Hypokalemia Plan: * Continue IVF prn * Encourage po hydration and nutrition * Increased Calcitonin to 0.8 units/kg as Ca better at 11.6 * Replete Mg, P prn * Start NaHCO3 for acidosis, may also help with hyperclacemia * Work up reviewed as above - vitamin D panel low- unclear etiology of hypercalcemia so far- may be related to dehydration * Dose medications for renal function * Avoid nephrotoxins * Patient is not cleared for discharge from a renal standpoint * Renal function has improved, no indication for renal replacement therapy * Will consider bisphosphonate therapy or Prolia if calcium continues to remain high * Outpatient follow up will be arranged Subjective Date of service: 08/08/21 Principal diagnosis: Abnormal ECG Interval history: Resting in bed, no acute issues noted. No clinical changes noted per patient, feeling well this AM Objective - Exam Narrative Exam: General appearance: well-developed, well-nourished EENT: ATNC Respiratory: Present: Clear to Ascultation Cardiology: regular, S1S2 Gastrointestinal: normal Integumentary: no rash Neurologic: alert and oriented x3 Psychiatric: cooperative - Vital Signs Vital signs: Vital Signs - 12hr 08/08/21 08/08/21 08/08/21 05:54 08:38 08:57 Temperature 97.8 F Pulse Rate 100 H Respiratory 18 16 Rate Blood Pressure 135/82 149/90 O2 Sat by Pulse 97 Oximetry 08/08/21 08/08/21 08/08/21 09:00 09:01 12:22 Temperature 98.3 F Pulse Rate 104 H 104 H 73 Respiratory 18 Rate Blood Pressure 123/78 O2 Sat by Pulse 98 Oximetry - Lab 08/03/21 22:35 08/08/21 05:23 Most recent lab results Calcium 10.9 mg/dL (8.4-10.2) H 08/08/21 05:23 Phosphorus 3.10 mg/dL (2.5-4.5) D 08/08/21 05:23 Magnesium 2.10 mg/dL (1.7-2.3) 08/08/21 05:23 Medications & Allergies - Medications Allergies/Adverse Reactions: Allergies No Known Allergies Allergy (Verified 08/03/21 12:53) Home Medications: Home Medications Medication Instructions Recorded Confirmed Last Taken Type Ferrous Sulfate [Iron 325 MG] 325 mg PO DAILY 07/30/21 08/03/21 Unknown History Hydralazine HCl 50 mg PO DAILY 07/30/21 08/03/21 Unknown History Insulin Lispro [Admelog] See Protocol SQ QACHS 07/30/21 08/03/21 Unknown History Metoprolol Tartrate [Lopressor] 100 mg PO BID 07/30/21 08/03/21 Unknown History amLODIPine 10 mg PO DAILY 07/30/21 08/03/21 Unknown History traMADoL [Ultram 50 MG tab] 50 mg PO Q6HR PRN 07/30/21 08/03/21 Unknown History Cyanocobalamin (Vitamin B-12) 2,500 mcg PO QDAY 08/03/21 08/03/21 Unknown History [Vitamin B12] Sodium Bicarbonate 650 mg PO TID #90 tablet 08/08/21 Unknown Rx calcitrioL [Rocaltrol] 0.25 mcg PO DAILY #14 cap 08/08/21 Unknown Rx megestroL [Megestrol] 400 mg PO QDAY 30 Days 08/08/21 Unknown Rx
== END 2021-08-08 15:57 | disposition home health service (06) | DRG 682 ==
LOC: ED 13:10 → 4A 14:16
PROVIDERS: ADMIT Internal Medicine; ATTEND Internal Medicine
PROC: 4A023N7 Measurement of Cardiac Sampling and Pressure, Left Heart, Percutaneous Approach (ICD-10-PCS; principal; 2021-07-30)
PROC: 4A133BC Monitoring of Arterial Pressure, Coronary, Percutaneous Approach (ICD-10-PCS; 2021-07-30)
PROC: B2111ZZ Fluoroscopy of Multiple Coronary Arteries using Low Osmolar Contrast (ICD-10-PCS; 2021-07-30)
PROC: B2151ZZ Fluoroscopy of Left Heart using Low Osmolar Contrast (ICD-10-PCS; 2021-07-30)
PROC: 05HA33Z Insertion of Infusion Device into Left Brachial Vein, Percutaneous Approach (ICD-10-PCS; 2021-08-07)
DX: N17.0 Acute kidney failure with tubular necrosis (principal); E43 Unspecified severe protein-calorie malnutrition; I42.2 Other hypertrophic cardiomyopathy; Z68.1 Body mass index [BMI] 19.9 or less, adult; E83.52 Hypercalcemia; E86.0 Dehydration; E87.6 Hypokalemia; R19.7 Diarrhea, unspecified; E11.22 Type 2 diabetes mellitus with diabetic chronic kidney disease; D64.9 Anemia, unspecified; E83.42 Hypomagnesemia; E83.39 Other disorders of phosphorus metabolism; D63.8 Anemia in other chronic diseases classified elsewhere; I12.9 Hypertensive chronic kidney disease with stage 1 through stage 4 chronic kidney disease, or unspecified chronic kidney disease; N18.9 Chronic kidney disease, unspecified; Z87.891 Personal history of nicotine dependence; Z83.3 Family history of diabetes mellitus; Z82.49 Family history of ischemic heart disease and other diseases of the circulatory system
CPT/HCPCS: 36415; 71045; 76770; 80048; 80053; 80061; 82164; 82306; 82330; 82550; 82553; 82962; 83735; 83970; 84100; 84132; 84165; 84484; 85025; 85027; 85610; 85730; 86334; 86850; 86900; 86901; 93005; 93306; 93458; G0378; J1815; J2704; J3490; J7510; Q0162; C1894; C8929; J0171; J0461; J0630; J1644; J2001; J2250; J2370; J3010; J3475; J3480; J7030; J7040; J7042; Q9967